=== PATIENT | male | born 1930 | race Caucasian/White ===

== ENCOUNTER 2018-01-09 16:07 | Inpatient (IN) | payer MEDICARE ==
[2018-01-09 16:18] VITALS: BMI 28.3
[2018-01-09] MEDS ORDERED: Vancomycin 1 GM 1 GM/250 ML BAG IV SCH (17:00)
--- NOTE | 2018-01-09 17:00 | C.PDOC ---
History Of Present Illness 87 year old male presents to the ED referred by PMD for evaluation of worsening swelling to the right elbow for the past 1-2 weeks. Notes purulent discharge and complains of associated subjective fever and chills. Denies history of diabetes or recent trauma. Reports he recently came back from [facility]. Also complains of left lower leg swelling for one week, onset after long flight. Reports history of kidney problems, but not dialysis treatment. Denies any chest pain, shortness of breath. MDM NO DOPPLER AVAIL @ THIS TIME. WILL DOSE LOVENOX FOR POSSIBLE DVT. <Yola Sevilla - Last Filed: 01/09/18 18:30> History Per: Patient History/Exam Limitations: no limitations Onset/Duration Of Symptoms: Days Current Symptoms Are (Timing): Still Present <Yola Sevilla - Last Filed: 01/09/18 18:30> <Samuel Grant - Last Filed: 01/09/18 20:33> Time Seen by Provider: 01/09/18 16:31 Chief Complaint (Nursing): Abnormal Skin Integrity Past Medical History Reviewed: Historical Data, Nursing Documentation, Vital Signs Vital Signs: Last Vital Signs Temp 97.7 F 01/09/18 16:18 Pulse 66 01/09/18 16:18 Resp 20 01/09/18 16:18 BP 130/75 01/09/18 16:18 Pulse Ox 100 01/09/18 16:18 - Medical History PMH: CAD, Diabetes, HTN Denies: Chronic Kidney Disease Surgical History: Pacemaker Family History: States: No Known Family Hx - Social History Hx Tobacco Use: No Hx Alcohol Use: No Hx Substance Use: No - Immunization History Hx Tetanus Toxoid Vaccination: Yes Hx Influenza Vaccination: Yes Hx Pneumococcal Vaccination: Yes <Yola Sevilla - Last Filed: 01/09/18 18:30> Vital Signs: Last Vital Signs Temp 97.7 F 01/09/18 16:18 Pulse 66 01/09/18 16:18 Resp 20 01/09/18 16:18 BP 130/75 01/09/18 16:18 Pulse Ox 100 01/09/18 18:31 <Samuel Grant - Last Filed: 01/09/18 20:33> Review Of Systems Except As Marked, All Systems Reviewed And Found Negative. Constitutional: Positive for: Fever, Chills Cardiovascular: Negative for: Chest Pain Respiratory: Negative for: Shortness of Breath Gastrointestinal: Negative for: Nausea, Vomiting Skin: Positive for: Other (right elbow swelling with purulent discharge and left lower leg swelling ) <Yola Sevilla Filed: 01/09/18 18:30> Physical Exam - Physical Exam Appears: Non-toxic, No Acute Distress Skin: Other (big swelling of the skin with purulent discharge to the olecranon region of right elbow ) Head: Atraumatic, Normacephalic Eye(s): bilateral: Normal Inspection Nose: Normal Oral Mucosa: Moist Neck: Supple Chest: Symmetrical Cardiovascular: Rhythm Regular Respiratory: No Rales, No Rhonchi, No Wheezing, Other (NARD) Extremity: Normal ROM (Right elbow and left leg ), No Deformity, Swelling (left lower swelling, nonpitting, no cellulitis, skin intact), Other ((+) minimal erythema to right elbow (-) lymphangitis) Pulses: Left Radial: Normal, Right Radial: Normal, Left Dorsalis Pedis: Normal, Right Dorsalis Pedis: Normal Neurological/Psych: Oriented x3, Normal Speech, Normal Motor, Normal Sensation, Normal Reflexes Gait: Steady <Yola Sevilla Filed: 01/09/18 18:30> ED Course And Treatment - Laboratory Results Result Diagrams: 01/09/18 17:28 01/09/18 17:28 O2 Sat by Pulse Oximetry: 100 (RA) Pulse Ox Interpretation: Normal - Radiology CXR: Interpreted by Me, Viewed By Me CXR Interpretation: Yes: No Acute Disease, Other (pacemaker) - Other Rad Right elbow X-Ray X-Ray: Interpreted by Me, Viewed By Me, Read By Radiologist Interpretation: Soft tissue mass, some questionable osteo in the olecranon. IMPRESSION: No large fracture or dislocation identified right elbow. However, a tiny bony fragment is seen posterior to the enthesiophyte related to the insertion of the triceps tendon at the olecranon process. Clinically correlate for potential partial tendon tear or simple chip fracture related to enthesophyte. Prominent overlying soft tissue edema with emphysema may indicate laceration or penetrating injury. Clinically correlate. <Yola Sevilla Filed: 01/09/18 18:30> - Laboratory Results Result Diagrams: 01/09/18 17:28 01/09/18 17:28 ECG Rhythm: V Paced ECG Interpretation: Normal Rate From EC <Samuel Grant E - Last Filed: 01/09/18 20:33> Progress - Re-Evaluation Re-evaluation Note: 01/09/18 17:02 D/W DR Izabella WHEELER WILL ADMIT. CONSULT DR BARROW - Data Reviewed Data Reviewed: Lab, Diagnostic imaging, EKG, Old records <Yola Sevilla - Last Filed: 01/09/18 18:30> Medical Decision Making Medical Decision Making: Plan - No Doppler available at this time. Will dose Lovenox for possible DVT - CT RUE - EKG - Bloodwork - Vancomycin IVPB - XR right elbow <Yola Sevilla - Last Filed: 01/09/18 18:30> Disposition Counseled Patient/Family Regarding: Studies Performed, Diagnosis - Disposition Disposition Time: 18:06 - POA Present On Arrival: Poor Glycemic Control <Yola Sevilla - Last Filed: 01/09/18 18:30> <Samuel Grant E - Last Filed: 01/09/18 20:33> - Disposition Disposition: HOSPITALIZED Condition: STABLE - Clinical Impression Clinical Impression: Leg swelling, Mass of elbow region - Scribe Statement The provider has reviewed the documentation as recorded by the Scribe Kalpana Duarte All medical record entries made by the Scribe were at my direction and personally dictated by me. I have reviewed the chart and agree that the record accurately reflects my personal performance of the history, physical exam, medical decision making, and the department course for this patient. I have also personally directed, reviewed, and agree with the discharge instructions and disposition. <Yola Sevilla - Last Filed: 01/09/18 18:30>
[2018-01-09 17:33] LABS: BASO % 0.7 % (0.0-2.0); EOS # 0.6 K/uL (0.0-0.7); EOS % 8.4 % (0.0-4.0); HEMOGLOBIN 9.2 g/dL (12.0-18.0); LYMPH # 1.5 K/uL (1.0-4.3); LYMPH % 22.7 % (20.0-40.0); MEAN CORPUSCULAR HEMOGLOBIN 28.6 pg (27.0-31.0); MEAN CORPUSCULAR HGB CONC 32.8 g/dL (33.0-37.0); MEAN PLATELET VOLUME 8.8 fL (7.2-11.7); MONO # 0.8 K/uL (0.0-0.8); NEUT # 3.7 K/uL (1.8-7.0); NEUT % 56.2 % (50.0-75.0); RBC 3.21 Mil/uL (4.40-5.90); RED CELL DISTRIBUTION WIDTH 14.9 % (11.5-14.5); WHITE BLOOD COUNT 6.6 K/uL (4.8-10.8)
[2018-01-09 17:34] LABS: MEAN CELL VOLUME 87.1 fL (80.0-94.0)
[2018-01-09] MEDS ORDERED: Enoxaparin 40 mg Syringe SC STA (17:37)
[2018-01-09] MEDS ORDERED: Enoxaparin 80 mg Syringe SC STA (17:45)
--- NOTE | 2018-01-09 17:46 | RAD ---
Date of service: 01/09/2018 HISTORY: MED CLEAR COMPARISON: Portable chest 04/19/2014. TECHNIQUE: Chest PA and lateral FINDINGS: LUNGS: No active pulmonary disease. PLEURA: No significant pleural effusion identified. No pneumothorax apparent. CARDIOVASCULAR: No aortic atherosclerotic calcification present. Cardiomegaly stable. Post CABG changes reiterated and bipolar permanent cardiac pacemaker again evident. No definite pulmonary vascular congestion. OSSEOUS STRUCTURES: No significant abnormalities. VISUALIZED UPPER ABDOMEN: Normal. OTHER FINDINGS: None. IMPRESSION: Stable cardiomegaly. No acute cardiovascular changes appreciable at this time. Pacemaker reiterated.
--- NOTE | 2018-01-09 17:47 | RAD ---
Date of service: 01/09/2018 PROCEDURE: Radiographs of the right elbow. HISTORY: SWELLING ABSCESS COMPARISON: No prior. FINDINGS: BONES: Tiny calcific fragment posterior to ossification of the insertion of the triceps tendon is identified which could reflect partial tendon tear or chip fracture off the enthesiophyte alone. Clinically correlate further. JOINTS: Limited degenerative cortical sclerosis appreciate throughout the joints of the right elbow. No subluxation or dislocation identified. SOFT TISSUES: Vascular calcifications are identified anteriorly. Prominent soft tissue edema overlies the olecranon process with gas within the soft tissue may reflect laceration or penetrating injury. Clinically correlate further. JOINT EFFUSION: None. OTHER FINDINGS: None. IMPRESSION: No large fracture or dislocation identified right elbow. However, a tiny bony fragment is seen posterior to the enthesiophyte related to the insertion of the triceps tendon at the olecranon process. Clinically correlate for potential partial tendon tear or simple chip fracture related to enthesophyte. Prominent overlying soft tissue edema with emphysema may indicate laceration or penetrating injury. Clinically correlate.
[2018-01-09 17:49] LABS: CALCIUM 9.2 mg/dl (8.6-10.4)
[2018-01-09] MEDS ORDERED: Sodium Chloride 0.9% 1,000 ML IV ONE (17:54)
[2018-01-09] MEDS ORDERED: Enoxaparin 80 mg Syringe ONE (18:27)
[2018-01-09] MEDS ORDERED: Sodium Chloride 0.9% 1,000 ML ONE (18:27)
[2018-01-09] MEDS ORDERED: Vancomycin 1 GM 1 GM/250 ML BAG IVPB ONE (18:27)
--- NOTE | 2018-01-09 19:05 | CP.PCM.HP ---
Past Patient History - Past Medical History & Family History Past Medical History?: Yes - Past Social History Smoking Status: Never Smoked - CARDIAC Hx Hypertension: Yes Hx Pacemaker: Yes - PULMONARY Hx Respiratory Disorders: No - NEUROLOGICAL Hx Neurological Disorder: No - HEENT Hx HEENT Problems: No - RENAL Hx Chronic Kidney Disease: No - ENDOCRINE/METABOLIC Hx Diabetes Mellitus Type 2: Yes - HEMATOLOGICAL/ONCOLOGICAL Hx Blood Disorders: No - INTEGUMENTARY Hx Dermatological Problems: No - MUSCULOSKELETAL/RHEUMATOLOGICAL Hx Musculoskeletal Disorders: No Hx Falls: No - GASTROINTESTINAL Hx Gastrointestinal Disorders: No - GENITOURINARY/GYNECOLOGICAL Hx Genitourinary Disorders: No - PSYCHIATRIC Hx Substance Use: No - SURGICAL HISTORY Hx Surgeries: Yes Other/Comment: pacemaker insertion - ANESTHESIA Hx Anesthesia: Yes Hx Anesthesia Reactions: No Hx Malignant Hyperthermia: No Meds Allergies/Adverse Reactions: Allergies Allergy/AdvReac Type Severity Reaction Status Date / Time No Known Allergies Allergy Verified 01/09/18 16:17 Physical Exam - Constitutional Appears: Well - Head Exam Head Exam: ATRAUMATIC, NORMAL INSPECTION, NORMOCEPHALIC - Eye Exam Eye Exam: EOMI, Normal appearance, PERRL Pupil Exam: NORMAL ACCOMODATION, PERRL - ENT Exam ENT Exam: Mucous Membranes Moist, Normal Exam - Neck Exam Neck exam: Positive for: Normal Inspection - Respiratory Exam Respiratory Exam: Decreased Breath Sounds - Cardiovascular Exam Cardiovascular Exam: REGULAR RHYTHM, +S1, +S2 - GI/Abdominal Exam GI & Abdominal Exam: Diminished Bowel Sounds, Soft - Rectal Exam Rectal Exam: Deferred Results - Vital Signs Recent Vital Signs: Last Vital Signs Temp 97.7 F 01/09/18 16:18 Pulse 66 01/09/18 16:18 Resp 20 01/09/18 16:18 BP 130/75 01/09/18 16:18 Pulse Ox 100 01/09/18 18:31 - Labs Result Diagrams: 01/09/18 17:28 01/09/18 17:28 Labs: Laboratory Results - last 24 hr 01/09/18 01/09/18 01/09/18 17:28 17:28 17:28 WBC 6.6 RBC 3.21 L Hgb 9.2 L Hct 27.9 L MCV 87.1 D MCH 28.6 MCHC 32.8 L RDW 14.9 H Plt Count 173 MPV 8.8 Neut % (Auto) 56.2 Lymph % (Auto) 22.7 [place] % (Auto) 12.0 H Eos % (Auto) 8.4 H Baso % (Auto) 0.7 Neut # (Auto) 3.7 Lymph # (Auto) 1.5 [place] # (Auto) 0.8 Eos # (Auto) 0.6 Baso # (Auto) 0.0 ESR 93 H Sodium 137 Potassium 4.1 Chloride 98 Carbon Dioxide 26 Anion Gap 17 BUN 57 H Creatinine 2.0 H Est GFR ( Amer) 39 Est GFR (Non-Af Amer) 32 Random Glucose 144 H Calcium 9.2 C-React Prot High Sens > 15.00 H
--- NOTE | 2018-01-09 19:22 | CT ---
Date of service: 01/09/2018 PROCEDURE: CT of the right upper extremity without contrast HISTORY: R ELBOW SOFT TISSUE MASS COMPARISON: No prior similar study available for comparison. TECHNIQUE: Axial and reformatted coronal and sagittal CT images of the right upper extremity including the right elbow were obtained without IV contrast administration. Reformatted 3D images were processed. Total exam DLP 156.91. FINDINGS: The evaluation for abscess formation or mass lesion is somewhat limited without IV contrast administration. There is heterogeneous mass like lesion posterior to the olecranon process. This lesion contains multiple foci of calcification and small foci of air measures 4 centimeter in the largest transverse diameter and 2 centimeter in the AP diameter. No definite evidence of drainable fluid collection in this lesion. There is adjacent subcutaneous edema. There is also heterogeneous tubular shaped calcification at the posterior aspect of distal right arm likely represent calcified tendinitis There is no evidence of acute fracture or dislocation. No evidence of significant joint effusion. No evidence of osteomyelitis or destructive bony lesion. IMPRESSION: Heterogeneous masslike lesion posterior to the olecranon process contains foci of calcification and foci of air. The evaluation for possible abscess is limited without IV contrast administration. No evidence of drainable fluid collection in this study. Suspicious for diffuse calcified tendinitis at the posterior aspect of the distal left arm
[2018-01-10] MEDS: Piperacillin/Tazobact 3.375 GM in Sodium Chloride 100 ML IVPB SCH ×3 (00:29→16:30)
[2018-01-10 01:05] VITALS: RESP 20
[2018-01-10] MEDS: Albuterol-Ipratrop 3 mg / 0.5 (3 ml) UD INH SCH ×4 (02:00→20:52)
[2018-01-10] MEDS: (Novolog) Insulin Aspart, Recombinant 100 u/ml 10 ml vial SC SCH ×4 (07:52→21:45)
[2018-01-10] MEDS: Pantoprazole 40 mg EC Tab PO SCH (09:09)
[2018-01-10] MEDS ORDERED: Albuterol-Ipratrop 20 mcg/actuation (4 g) IH SCH (10:00)
[2018-01-10] MEDS: metOLazone 5 MG TAB PO SCH (10:42)
--- NOTE | 2018-01-10 11:55 | CP.PCM.PN ---
Subjective - Date & Time of Evaluation Date of Evaluation: 01/10/18 Time of Evaluation: 08:45 - Subjective Subjective: clinically same Objective - Vital Signs/Intake and Output Vital Signs (last 24 hours): Temp Pulse Resp BP Pulse Ox 98.7 F 61 20 114/64 99 01/10/18 08:19 01/10/18 08:19 01/10/18 08:19 01/10/18 08:19 01/10/18 08:19 - Medications Medications: Current Medications Albuterol/Ipratropium (Combivent Respimat) 1 puff IH RQ12 [facility] Albuterol/Ipratropium (Duoneb 3 Mg/0.5 Mg (3 Ml) Ud) 3 ml INH RQ6 [facility] Last Admin: 01/10/18 07:40 Dose: 3 ml Celecoxib (Celebrex) 200 mg PO Q12 PRN PRN Reason: Pain, moderate (4-7) Ferrous Sulfate (Feosol) 325 mg PO BID [facility] Last Admin: 01/10/18 09:09 Dose: 325 mg Finasteride (Proscar) 5 mg PO DAILY [facility] Last Admin: 01/10/18 09:09 Dose: 5 mg Fluticasone/Vilanterol (Breo Ellipta 100-25 Mcg Inh) 1 puff INH RQ24 [facility] Folic Acid (Folic Acid) 1 mg PO DAILY [facility] Last Admin: 01/10/18 09:09 Dose: 1 mg Home Med (Eliquis) 1 tab PO BID [facility] Piperacillin Sod/Tazobactam (Sod 3.375 gm/ Sodium Chloride) 100 mls @ 200 mls/hr IVPB Q8H [facility]; Protocol Last Admin: 01/10/18 09:06 Dose: 200 mls/hr Insulin Aspart (Novolog) 0 unit SC ACHS [facility]; Protocol Last Admin: 01/10/18 07:52 Dose: Not Given Metolazone (Zaroxolyn) 5 mg PO DAILY [facility] Last Admin: 01/10/18 10:42 Dose: 5 mg Morphine Sulfate (Morphine) 2 mg IV Q6 PRN PRN Reason: Pain, moderate (4-7) Pantoprazole Sodium (Protonix Ec Tab) 40 mg PO DAILY [facility] Last Admin: 01/10/18 09:09 Dose: 40 mg Pioglitazone HCl (Actos) 30 mg PO DAILY [facility] Last Admin: 01/10/18 10:42 Dose: 30 mg Pneumococcal Polyvalent Vaccine (Pneumovax 23 Vaccine) 0.5 ml IM .ONCE ONE Stop: 01/11/18 10:01 Pregabalin (Lyrica) 75 mg PO Q12 PRN PRN Reason: Pain, moderate (4-7) Last Admin: 01/10/18 01:33 Dose: 75 mg Tamsulosin HCl (Flomax) 0.4 mg PO DAILY [facility] Last Admin: 01/10/18 09:09 Dose: 0.4 mg - Labs Labs: 01/09/18 17:28 01/09/18 17:28 - Constitutional Appears: Well - Head Exam Head Exam: ATRAUMATIC, NORMAL INSPECTION, NORMOCEPHALIC - Eye Exam Eye Exam: EOMI, Normal appearance, PERRL Pupil Exam: NORMAL ACCOMODATION, PERRL - ENT Exam ENT Exam: Mucous Membranes Moist, Normal Exam - Neck Exam Neck Exam: Full ROM, Normal Inspection. absent: Lymphadenopathy - Respiratory Exam Respiratory Exam: Decreased Breath Sounds - Cardiovascular Exam Cardiovascular Exam: REGULAR RHYTHM, +S1, +S2 - GI/Abdominal Exam GI & Abdominal Exam: Soft, Diminished Bowel Sounds - Rectal Exam Rectal Exam: Deferred
[2018-01-10] MEDS: Fluticasone-Vilanterol 100/25mcg Diskus INH SCH (13:13)
--- NOTE | 2018-01-10 13:18 | CP.PCM.CON ---
History of Present Illness - History of Present Illness History of Present Illness: 87 y/o presents with R. elbow abscess wit hc of pus/drainage and subjective fever and chills Returned from a 2 week vacation in [facility] after flight reports LLE edema At present mild SOB, no CP, no fever, no N/V, no calf tenderness PMHX: Chronic medical problems 1. 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 AFIB prior on eliquis 2.5 BID 2. CKD III 3. DM chronic fair control, 4. PPM L. chest Denies CVA Review of Systems - Review of Systems All systems: reviewed and no additional remarkable complaints except Past Patient History - Past Medical History & Family History Past Medical History?: Yes - Past Social History Smoking Status: Never Smoked - CARDIAC Hx Hypertension: Yes Hx Pacemaker: Yes - PULMONARY Hx Respiratory Disorders: No - NEUROLOGICAL Hx Neurological Disorder: No - HEENT Hx HEENT Problems: No - RENAL Hx Chronic Kidney Disease: No - ENDOCRINE/METABOLIC Hx Diabetes Mellitus Type 2: Yes - HEMATOLOGICAL/ONCOLOGICAL Hx Blood Disorders: No - INTEGUMENTARY Hx Dermatological Problems: No - MUSCULOSKELETAL/RHEUMATOLOGICAL Hx Musculoskeletal Disorders: No Hx Falls: No - GASTROINTESTINAL Hx Gastrointestinal Disorders: No - GENITOURINARY/GYNECOLOGICAL Hx Genitourinary Disorders: No - PSYCHIATRIC Hx Substance Use: No - SURGICAL HISTORY Hx Surgeries: Yes Other/Comment: pacemaker insertion - ANESTHESIA Hx Anesthesia: Yes Hx Anesthesia Reactions: No Hx Malignant Hyperthermia: No Meds Allergies/Adverse Reactions: Allergies Allergy/AdvReac Type Severity Reaction Status Date / Time No Known Allergies Allergy Verified 01/09/18 16:17 - Medications Medications: Current Medications Albuterol/Ipratropium (Combivent Respimat) 1 puff IH RQ12 [facility] Albuterol/Ipratropium (Duoneb 3 Mg/0.5 Mg (3 Ml) Ud) 3 ml INH RQ6 [facility] Last Admin: 01/10/18 13:11 Dose: 3 ml Celecoxib (Celebrex) 200 mg PO Q12 PRN PRN Reason: Pain, moderate (4-7) Ferrous Sulfate (Feosol) 325 mg PO BID [facility] Last Admin: 01/10/18 09:09 Dose: 325 mg Finasteride (Proscar) 5 mg PO DAILY [facility] Last Admin: 01/10/18 09:09 Dose: 5 mg Fluticasone/Vilanterol (Breo Ellipta 100-25 Mcg Inh) 1 puff INH RQ24 [facility] Last Admin: 01/10/18 13:13 Dose: Not Given Folic Acid (Folic Acid) 1 mg PO DAILY [facility] Last Admin: 01/10/18 09:09 Dose: 1 mg Home Med (Eliquis) 1 tab PO BID [facility] Piperacillin Sod/Tazobactam (Sod 3.375 gm/ Sodium Chloride) 100 mls @ 200 mls/hr IVPB Q8H [facility]; Protocol Last Admin: 01/10/18 09:06 Dose: 200 mls/hr Insulin Aspart (Novolog) 0 unit SC ACHS [facility]; Protocol Last Admin: 01/10/18 12:13 Dose: Not Given Metolazone (Zaroxolyn) 5 mg PO DAILY [facility] Last Admin: 01/10/18 10:42 Dose: 5 mg Morphine Sulfate (Morphine) 2 mg IV Q6 PRN PRN Reason: Pain, moderate (4-7) Pantoprazole Sodium (Protonix Ec Tab) 40 mg PO DAILY [facility] Last Admin: 01/10/18 09:09 Dose: 40 mg Pioglitazone HCl (Actos) 30 mg PO DAILY [facility] Last Admin: 01/10/18 10:42 Dose: 30 mg Pneumococcal Polyvalent Vaccine (Pneumovax 23 Vaccine) 0.5 ml IM .ONCE ONE Stop: 01/11/18 10:01 Pregabalin (Lyrica) 75 mg PO Q12 PRN PRN Reason: Pain, moderate (4-7) Last Admin: 01/10/18 13:08 Dose: 75 mg Tamsulosin HCl (Flomax) 0.4 mg PO DAILY [facility] Last Admin: 01/10/18 09:09 Dose: 0.4 mg Physical Exam - Constitutional Appears: No Acute Distress - Head Exam Head Exam: ATRAUMATIC, NORMAL INSPECTION, NORMOCEPHALIC - Eye Exam Eye Exam: EOMI, Normal appearance - ENT Exam ENT Exam: Mucous Membranes Moist, Normal Oropharynx - Neck Exam Neck exam: Positive for: Full Rom, Normal Inspection - Respiratory Exam Respiratory Exam: Clear to Auscultation Bilateral. absent: Rales, Rhonchi, W heezes - Cardiovascular Exam Cardiovascular Exam: REGULAR RHYTHM, +S1, +S2. absent: Systolic Murmur - GI/Abdominal Exam GI & Abdominal Exam: Normal Bowel Sounds, Soft. absent: Tenderness - Extremities Exam Extremities exam: Positive for: pedal edema, pedal pulses present. Negative for: calf tenderness Additional comments: RUE elbow abscess/mass - Neurological Exam Neurological exam: Alert, Oriented x3 - Psychiatric Exam Psychiatric exam: Normal Affect, Normal Mood - Skin Skin Exam: Normal Color, Warm Results - Vital Signs Recent Vital Signs: Last Vital Signs Temp 98.7 F 01/10/18 08:19 Pulse 61 01/10/18 08:19 Resp 20 01/10/18 08:19 BP 114/64 01/10/18 08:19 Pulse Ox 99 01/10/18 08:19 - Labs Result Diagrams: 01/09/18 17:28 01/09/18 17:28 Labs: Laboratory Results - last 24 hr 01/09/18 01/09/18 01/09/18 17:28 17:28 17:28 WBC 6.6 RBC 3.21 L Hgb 9.2 L Hct 27.9 L MCV 87.1 D MCH 28.6 MCHC 32.8 L RDW 14.9 H Plt Count 173 MPV 8.8 Neut % (Auto) 56.2 Lymph % (Auto) 22.7 [place] % (Auto) 12.0 H Eos % (Auto) 8.4 H Baso % (Auto) 0.7 Neut # (Auto) 3.7 Lymph # (Auto) 1.5 [place] # (Auto) 0.8 Eos # (Auto) 0.6 Baso # (Auto) 0.0 ESR 93 H Sodium 137 Potassium 4.1 Chloride 98 Carbon Dioxide 26 Anion Gap 17 BUN 57 H Creatinine 2.0 H Est GFR ( Amer) 39 Est GFR (Non-Af Amer) 32 POC Glucose (mg/dL) Random Glucose 144 H Calcium 9.2 C-React Prot High Sens > 15.00 H 01/10/18 01/10/18 07:05 11:15 WBC RBC Hgb Hct MCV MCH MCHC RDW Plt Count MPV Neut % (Auto) Lymph % (Auto) [place] % (Auto) Eos % (Auto) Baso % (Auto) Neut # (Auto) Lymph # (Auto) [place] # (Auto) Eos # (Auto) Baso # (Auto) ESR Sodium Potassium Chloride Carbon Dioxide Anion Gap BUN Creatinine Est GFR ( Amer) Est GFR (Non-Af Amer) POC Glucose (mg/dL) 108 152 H Random Glucose Calcium C-React Prot High Sens - EKG Data EKG Interpreted by: Myself - Imaging and Cardiology Chest x-ray Status: Image reviewed by me Assessment & Plan - Assessment and Plan (Free Text) Assessment: 87 y/o presetns with 1. LLE edema after a flight 2. Progression of R. Olecranon/elbow abscess ABX and consider I&D if appropriate F/U LE u/s to r/o DVT ASHD Known CABG 12 years ago EKG: v. paced with atrial tachycardia: rate controlled Ordered: 2D echo to eval LV function Patient should be optimized with Toprol or coreg; ASA 81 and statin therapy CKD III Monitor lytes BP control to SBP <130 Losartan 25 if ok with renal Anemia noted ? related to CKD/chronic disease hx of AFlutter/fib EKG is V. paced likely mode-swithed due to AFIB/flutter Resume eliquis 2.5 BID if no blood loss anemia - Date & Time Date: 01/10/18 Time: 13:34
--- NOTE | 2018-01-10 13:29 | CP.PCM.CON ---
History of Present Illness - History of Present Illness History of Present Illness: 87 year old male presents to the ED referred by PMD for evaluation of worsening swelling to the right elbow for the past 1-2 weeks. Notes purulent discharge and complains of associated subjective fever and chills. Denies history of diabetes or recent trauma. Reports he recently came back from [facility]. Also complains of left lower leg swelling for one week, onset after long flight. Reports history of kidney problems, but not dialysis treatment. Denies any chest pain, shortness of breath. recc imaging, cultures ortho eval IV antibiotics Past Patient History - Past Medical History & Family History Past Medical History?: Yes - Past Social History Smoking Status: Never Smoked - CARDIAC Hx Hypertension: Yes Hx Pacemaker: Yes - PULMONARY Hx Respiratory Disorders: No - NEUROLOGICAL Hx Neurological Disorder: No - HEENT Hx HEENT Problems: No - RENAL Hx Chronic Kidney Disease: No - ENDOCRINE/METABOLIC Hx Diabetes Mellitus Type 2: Yes - HEMATOLOGICAL/ONCOLOGICAL Hx Blood Disorders: No - INTEGUMENTARY Hx Dermatological Problems: No - MUSCULOSKELETAL/RHEUMATOLOGICAL Hx Musculoskeletal Disorders: No Hx Falls: No - GASTROINTESTINAL Hx Gastrointestinal Disorders: No - GENITOURINARY/GYNECOLOGICAL Hx Genitourinary Disorders: No - PSYCHIATRIC Hx Substance Use: No - SURGICAL HISTORY Hx Surgeries: Yes Other/Comment: pacemaker insertion - ANESTHESIA Hx Anesthesia: Yes Hx Anesthesia Reactions: No Hx Malignant Hyperthermia: No Meds Allergies/Adverse Reactions: Allergies Allergy/AdvReac Type Severity Reaction Status Date / Time No Known Allergies Allergy Verified 01/09/18 16:17 - Medications Medications: Current Medications Albuterol/Ipratropium (Combivent Respimat) 1 puff IH RQ12 [facility] Albuterol/Ipratropium (Duoneb 3 Mg/0.5 Mg (3 Ml) Ud) 3 ml INH RQ6 [facility] Last Admin: 01/10/18 13:11 Dose: 3 ml Celecoxib (Celebrex) 200 mg PO Q12 PRN PRN Reason: Pain, moderate (4-7) Ferrous Sulfate (Feosol) 325 mg PO BID [facility] Last Admin: 01/10/18 09:09 Dose: 325 mg Finasteride (Proscar) 5 mg PO DAILY [facility] Last Admin: 01/10/18 09:09 Dose: 5 mg Fluticasone/Vilanterol (Breo Ellipta 100-25 Mcg Inh) 1 puff INH RQ24 [facility] Last Admin: 01/10/18 13:13 Dose: Not Given Folic Acid (Folic Acid) 1 mg PO DAILY [facility] Last Admin: 01/10/18 09:09 Dose: 1 mg Home Med (Eliquis) 1 tab PO BID [facility] Piperacillin Sod/Tazobactam (Sod 3.375 gm/ Sodium Chloride) 100 mls @ 200 mls /hr IVPB Q8H [facility]; Protocol Last Admin: 01/10/18 09:06 Dose: 200 mls/hr Insulin Aspart (Novolog) 0 unit SC ACHS [facility]; Protocol Last Admin: 01/10/18 12:13 Dose: Not Given Metolazone (Zaroxolyn) 5 mg PO DAILY [facility] Last Admin: 01/10/18 10:42 Dose: 5 mg Morphine Sulfate (Morphine) 2 mg IV Q6 PRN PRN Reason: Pain, moderate (4-7) Pantoprazole Sodium (Protonix Ec Tab) 40 mg PO DAILY [facility] Last Admin: 01/10/18 09:09 Dose: 40 mg Pioglitazone HCl (Actos) 30 mg PO DAILY [facility] Last Admin: 01/10/18 10:42 Dose: 30 mg Pneumococcal Polyvalent Vaccine (Pneumovax 23 Vaccine) 0.5 ml IM .ONCE ONE Stop: 01/11/18 10:01 Pregabalin (Lyrica) 75 mg PO Q12 PRN PRN Reason: Pain, moderate (4-7) Last Admin: 01/10/18 13:08 Dose: 75 mg Tamsulosin HCl (Flomax) 0.4 mg PO DAILY [facility] Last Admin: 01/10/18 09:09 Dose: 0.4 mg Results - Vital Signs Recent Vital Signs: Last Vital Signs Temp 98.7 F 01/10/18 08:19 Pulse 61 01/10/18 08:19 Resp 20 01/10/18 08:19 BP 114/64 01/10/18 08:19 Pulse Ox 99 01/10/18 08:19 - Labs Result Diagrams: 01/09/18 17:28 01/09/18 17:28 Labs: Laboratory Results - last 24 hr 01/09/18 01/09/18 01/09/18 17:28 17:28 17:28 WBC 6.6 RBC 3.21 L Hgb 9.2 L Hct 27.9 L MCV 87.1 D MCH 28.6 MCHC 32.8 L RDW 14.9 H Plt Count 173 MPV 8.8 Neut % (Auto) 56.2 Lymph % (Auto) 22.7 [place] % (Auto) 12.0 H Eos % (Auto) 8.4 H Baso % (Auto) 0.7 Neut # (Auto) 3.7 Lymph # (Auto) 1.5 [place] # (Auto) 0.8 Eos # (Auto) 0.6 Baso # (Auto) 0.0 ESR 93 H Sodium 137 Potassium 4.1 Chloride 98 Carbon Dioxide 26 Anion Gap 17 BUN 57 H Creatinine 2.0 H Est GFR ( Amer) 39 Est GFR (Non-Af Amer) 32 POC Glucose (mg/dL) Random Glucose 144 H Calcium 9.2 C-React Prot High Sens > 15.00 H 01/10/18 01/10/18 07:05 11:15 WBC RBC Hgb Hct MCV MCH MCHC RDW Plt Count MPV Neut % (Auto) Lymph % (Auto) [place] % (Auto) Eos % (Auto) Baso % (Auto) Neut # (Auto) Lymph # (Auto) [place] # (Auto) Eos # (Auto) Baso # (Auto) ESR Sodium Potassium Chloride Carbon Dioxide Anion Gap BUN Creatinine Est GFR ( Amer) Est GFR (Non-Af Amer) POC Glucose (mg/dL) 108 152 H Random Glucose Calcium C-React Prot High Sens
[2018-01-11] MEDS: Piperacillin/Tazobact 3.375 GM in Sodium Chloride 100 ML IVPB SCH ×3 (00:15→17:00)
[2018-01-11] MEDS: Albuterol-Ipratrop 3 mg / 0.5 (3 ml) UD INH SCH ×4 (01:20→20:27)
[2018-01-11] MEDS: (Novolog) Insulin Aspart, Recombinant 100 u/ml 10 ml vial SC SCH ×4 (07:57→21:58)
[2018-01-11] MEDS: Pantoprazole 40 mg EC Tab PO SCH (09:11)
[2018-01-11] MEDS: metOLazone 5 MG TAB PO SCH (09:11)
[2018-01-11] MEDS: Fluticasone-Vilanterol 100/25mcg Diskus INH SCH (09:32)
[2018-01-11] MEDS ORDERED: Pneumococcal 23-Valent Vaccine IM ONE (10:00)
[2018-01-11] MEDS: Morphine 4 MG/ML VIAL IVP PRN (14:18)
--- NOTE | 2018-01-11 16:20 | CP.PCM.CON ---
History of Present Illness - History of Present Illness History of Present Illness: 87 year old male presents to the ED referred by PMD for evaluation of worsening swelling to the right elbow for the past 1-2 weeks. Notes purulent discharge and complains of associated subjective fever and chills. Denies history of diabetes or recent trauma. Reports he recently came back from [facility]. Also complains of left lower leg swelling for one week, onset after long flight. Reports history of kidney problems, but not dialysis treatment. Denies any chest pain, shortness of breath. recc imaging, cultures ortho eval IV antibiotics Review of Systems - Review of Systems All systems: reviewed and no additional remarkable complaints except - Constitutional Constitutional: As Per HPI - EENT Eyes: absent: As Per HPI, Blind Spots, Blurred Vision, Change in Vision, Decreased Night Vision, Diplopia, Discharge, Dry Eye, Exophthalmos, Floaters, Irritation, Itchy Eyes, Loss of Peripheral Vision, Pain, Photophobia, Requires Corrective Lenses, Sees Flashes, Spots in Vision, Tunnel Vision, Other Visual Disturbances, Loss of Vision, Other Ears: absent: As Per HPI, Decreased Hearing, Ear Discharge, Ear Pain, Tinnitus, Abnormal Hearing, Disequilibrium, Dizziness, Other Nose/Mouth/Throat: absent: As Per HPI, Epistaxis, Nasal Congestion, Nasal Discharge, Nasal Obstruction, Nasal Trauma, Nose Pain, Post Nasal Drip, Sinus Pain, Sinus Pressure, Bleeding Gums, Change in Voice, Dental Pain, Dry Mouth, Dysphagia, Halitosis, Hoarsness, Lip Swelling, Mouth Lesions, Mouth Pain, Odynophagia, Sore Throat, Throat Swelling, Tongue Swelling, Facial Pain, Neck Pain, Neck Mass, Other - Cardiovascular Cardiovascular: As Per HPI - Gastrointestinal Gastrointestinal: absent: As Per HPI, Abdominal Pain, Belching, Bloating, Change in Bowel Habits, Change in Stool Character, Coffee Ground Emesis, Constipation, Cramping, Diarrhea, Dyspepsia, Dysphagia, Early Satiety, Excessive Flatus, Fecal Incontinence, Heartburn, Hematemesis, Hematochezia, Loose Stools, Melena, Nausea, Odynophagia, Temesmus, Vomiting, Other - Genitourinary Genitourinary: absent: As Per HPI, Change in Urinary Stream, Difficulty Urinating, Dysuria, Flank Pain, Hematuria, Pyuria, Nocturia, Urinary Incontinence, Urinary Frequency, Urinary Hesitance, Urinary Urgency, Voiding Freq/Small Amts, Freq UTI, Hx Renal/Bladder Calculi, Hx /Renal Surgery, Marty dder Distension, Other - Musculoskeletal Musculoskeletal: As Per HPI - Integumentary Integumentary: As Per HPI - Neurological Neurological: absent: As Per HPI, Abnormal Gait, Abnormal Hearing, Abnormal Movements, Abnormal Speech, Behavioral Changes, Burning Sensations, Confusion, Convulsions, Disequilibrium, Dizziness, Numbness, Focal Weakness, Frequent Falls, Headaches, Lack of Coordination, Loss of Vision, Memory Loss, Paresthesias, Radicular Pain, Restless Legs, Sensory Deficit, Syncope, Tingling, Tremor, Vertigo, Weakness, Other Visual Disturbances, Other Past Patient History - Past Medical History & Family History Past Medical History?: Yes - Past Social History Smoking Status: Never Smoked - CARDIAC Hx Hypertension: Yes - PULMONARY Hx Respiratory Disorders: No - NEUROLOGICAL Hx Neurological Disorder: No - HEENT Hx HEENT Problems: No - RENAL Hx Chronic Kidney Disease: No - ENDOCRINE/METABOLIC Hx Diabetes Mellitus Type 2: Yes - HEMATOLOGICAL/ONCOLOGICAL Hx Blood Disorders: No - INTEGUMENTARY Hx Dermatological Problems: No - MUSCULOSKELETAL/RHEUMATOLOGICAL Hx Musculoskeletal Disorders: No Hx Falls: No - GASTROINTESTINAL Hx Gastrointestinal Disorders: No - GENITOURINARY/GYNECOLOGICAL Hx Genitourinary Disorders: No - PSYCHIATRIC Hx Substance Use: No - SURGICAL HISTORY Hx Surgeries: Yes Other/Comment: pacemaker insertion - ANESTHESIA Hx Anesthesia: Yes Hx Anesthesia Reactions: No Hx Malignant Hyperthermia: No Meds Allergies/Adverse Reactions: Allergies Allergy/AdvReac Type Severity Reaction Status Date / Time No Known Allergies Allergy Verified 01/09/18 16:17 - Medications Medications: Current Medications Albuterol/Ipratropium (Combivent Respimat) 1 puff IH RQ12 [facility] Albuterol/Ipratropium (Duoneb 3 Mg/0.5 Mg (3 Ml) Ud) 3 ml INH RQ6 [facility] Last Admin: 01/11/18 15:22 Dose: Not Given Apixaban (Eliquis) 2.5 mg PO BID [facility] Last Admin: 01/11/18 09:10 Dose: 2.5 mg Celecoxib (Celebrex) 200 mg PO Q12 PRN PRN Reason: Pain, moderate (4-7) Ferrous Sulfate (Feosol) 325 mg PO BID [facility] Last Admin: 01/11/18 09:10 Dose: 325 mg Finasteride (Proscar) 5 mg PO DAILY [facility] Last Admin: 01/11/18 09:10 Dose: 5 mg Fluticasone/Vilanterol (Breo Ellipta 100-25 Mcg Inh) 1 puff INH RQ24 [facility] Last Admin: 01/11/18 09:32 Dose: Not Given Folic Acid (Folic Acid) 1 mg PO DAILY [facility] Last Admin: 01/11/18 09:10 Dose: 1 mg Piperacillin Sod/Tazobactam (Sod 3.375 gm/ Sodium Chloride) 100 mls @ 200 mls/hr IVPB Q8H [facility]; Protocol Last Admin: 01/11/18 08:35 Dose: 200 mls/hr Insulin Aspart (Novolog) 0 unit SC ACHS [facility]; Protocol Last Admin: 01/11/18 12:43 Dose: 1 u Metolazone (Zaroxolyn) 5 mg PO DAILY [facility] Last Admin: 01/11/18 09:11 Dose: 5 mg Morphine Sulfate (Morphine) 4 mg IVP Q6 PRN PRN Reason: Pain, severe (8-10) Last Admin: 01/11/18 14:18 Dose: 4 mg Pantoprazole Sodium (Protonix Ec Tab) 40 mg PO DAILY [facility] Last Admin: 01/11/18 09:11 Dose: 40 mg Pioglitazone HCl (Actos) 30 mg PO DAILY [facility] Last Admin: 01/11/18 09:10 Dose: 30 mg Pregabalin (Lyrica) 75 mg PO Q12 PRN PRN Reason: Pain, moderate (4-7) Last Admin: 01/11/18 00:35 Dose: 75 mg Tamsulosin HCl (Flomax) 0.4 mg PO DAILY [facility] Last Admin: 01/11/18 09:10 Dose: 0.4 mg Physical Exam - Constitutional Appears: Non-toxic, Chronically Ill - Head Exam Head Exam: NORMOCEPHALIC - Eye Exam Eye Exam: absent: Scleral icterus - ENT Exam ENT Exam: Mucous Membranes Dry - Neck Exam Neck exam: Negative for: Lymphadenopathy - Respiratory Exam Respiratory Exam: Decreased Breath Sounds - Cardiovascular Exam Cardiovascular Exam: REGULAR RHYTHM - GI/Abdominal Exam GI & Abdominal Exam: Diminished Bowel Sounds, Soft. absent: Tenderness - Rectal Exam Rectal Exam: Deferred - Exam Exam: NORMAL INSPECTION - Extremities Exam Extremities exam: Positive for: tenderness, pedal pulses present. Negative for: calf tenderness - Back Exam Back exam: absent: CVA tenderness (L), CVA tenderness (R) - Neurological Exam Neurological exam: Alert, CN II-XII Intact, Oriented x3, Reflexes Normal - Psychiatric Exam Psychiatric exam: Depressed - Skin Skin Exam: Dry Results - Vital Signs Recent Vital Signs: Last Vital Signs Temp 97.7 F 01/11/18 08:12 Pulse 71 01/11/18 12:02 Resp 20 01/11/18 08:12 BP 130/72 01/11/18 08:12 Pulse Ox 97 01/11/18 12:02 - Labs Result Diagrams: 01/09/18 17:28 01/09/18 17:28 Labs: Laboratory Results - last 24 hr 01/10/18 01/11/18 21:14 02:20 POC Glucose (mg/dL) 137 H 110 Assessment & Plan (1) Leg swelling Status: Acute (2) Mass of elbow region Status: Acute (3) 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
--- NOTE | 2018-01-11 17:25 | CP.PCM.PN ---
Subjective - Date & Time of Evaluation Date of Evaluation: 01/11/18 Time of Evaluation: 08:30 - Subjective Subjective: clinically same Objective - Vital Signs/Intake and Output Vital Signs (last 24 hours): Temp Pulse Resp BP Pulse Ox 97.5 F L 81 20 111/58 L 99 01/11/18 15:00 01/11/18 15:00 01/11/18 15:00 01/11/18 15:00 01/11/18 15:00 Intake and Output: 01/11/18 01/11/18 06:59 18:59 Intake Total 400 600 Balance 400 600 - Medications Medications: Current Medications Albuterol/Ipratropium (Combivent Respimat) 1 puff IH RQ12 [facility] Albuterol/Ipratropium (Duoneb 3 Mg/0.5 Mg (3 Ml) Ud) 3 ml INH RQ6 [facility] Last Admin: 01/11/18 15:22 Dose: Not Given Apixaban (Eliquis) 2.5 mg PO BID [facility] Last Admin: 01/11/18 09:10 Dose: 2.5 mg Celecoxib (Celebrex) 200 mg PO Q12 PRN PRN Reason: Pain, moderate (4-7) Ferrous Sulfate (Feosol) 325 mg PO BID [facility] Last Admin: 01/11/18 09:10 Dose: 325 mg Finasteride (Proscar) 5 mg PO DAILY [facility] Last Admin: 01/11/18 09:10 Dose: 5 mg Fluticasone/Vilanterol (Breo Ellipta 100-25 Mcg Inh) 1 puff INH RQ24 [facility] Last Admin: 01/11/18 09:32 Dose: Not Given Folic Acid (Folic Acid) 1 mg PO DAILY [facility] Last Admin: 01/11/18 09:10 Dose: 1 mg Piperacillin Sod/Tazobactam (Sod 3.375 gm/ Sodium Chloride) 100 mls @ 200 mls/hr IVPB Q8H [facility]; Protocol Last Admin: 01/11/18 08:35 Dose: 200 mls/hr Insulin Aspart (Novolog) 0 unit SC ACHS [facility]; Protocol Last Admin: 01/11/18 12:43 Dose: 1 u Metolazone (Zaroxolyn) 5 mg PO DAILY [facility] Last Admin: 01/11/18 09:11 Dose: 5 mg Morphine Sulfate (Morphine) 4 mg IVP Q6 PRN PRN Reason: Pain, severe (8-10) Last Admin: 01/11/18 14:18 Dose: 4 mg Pantoprazole Sodium (Protonix Ec Tab) 40 mg PO DAILY [facility] Last Admin: 01/11/18 09:11 Dose: 40 mg Pioglitazone HCl (Actos) 30 mg PO DAILY [facility] Last Admin: 01/11/18 09:10 Dose: 30 mg Pregabalin (Lyrica) 75 mg PO Q12 PRN PRN Reason: Pain, moderate (4-7) Last Admin: 01/11/18 00:35 Dose: 75 mg Tamsulosin HCl (Flomax) 0.4 mg PO DAILY [facility] Last Admin: 01/11/18 09:10 Dose: 0.4 mg Temazepam (Restoril) 15 mg PO HS PRN PRN Reason: Sleep - Labs Labs: 01/09/18 17:28 01/09/18 17:28 - Constitutional Appears: Well - Head Exam Head Exam: ATRAUMATIC, NORMAL INSPECTION, NORMOCEPHALIC - Eye Exam Eye Exam: EOMI, Normal appearance, PERRL Pupil Exam: NORMAL ACCOMODATION, PERRL - ENT Exam ENT Exam: Mucous Membranes Moist, Normal Exam - Neck Exam Neck Exam: Full ROM, Normal Inspection. absent: Lymphadenopathy - Respiratory Exam Respiratory Exam: Decreased Breath Sounds - Cardiovascular Exam Cardiovascular Exam: REGULAR RHYTHM, +S1, +S2 - GI/Abdominal Exam GI & Abdominal Exam: Soft, Diminished Bowel Sounds - Rectal Exam Rectal Exam: Deferred
[2018-01-12] MEDS: Albuterol-Ipratrop 3 mg / 0.5 (3 ml) UD INH SCH ×4 (01:35→19:47)
[2018-01-12] MEDS: (Novolog) Insulin Aspart, Recombinant 100 u/ml 10 ml vial SC SCH ×4 (08:25→22:51)
[2018-01-12] MEDS: Fluticasone-Vilanterol 100/25mcg Diskus INH SCH (08:35)
[2018-01-12] MEDS: Piperacillin/Tazobact 3.375 GM in Sodium Chloride 100 ML IVPB SCH ×3 (08:51→17:00)
[2018-01-12] MEDS: Pantoprazole 40 mg EC Tab PO SCH (11:00)
[2018-01-12] MEDS: metOLazone 5 MG TAB PO SCH (11:01)
--- NOTE | 2018-01-12 12:26 | CP.PCM.PN ---
Subjective - Date & Time of Evaluation Date of Evaluation: 01/12/18 Time of Evaluation: 09:00 - Subjective Subjective: still c/o pain CT noted- no definiyte abscess or bony destruction wound + MSSA no Vanco needed may need debridement Objective - Vital Signs/Intake and Output Vital Signs (last 24 hours): Temp Pulse Resp BP Pulse Ox 97.9 F 88 20 135/70 97 01/12/18 07:24 01/12/18 07:24 01/12/18 07:24 01/12/18 07:24 01/12/18 07:24 Intake and Output: 01/12/18 01/12/18 06:59 18:59 Intake Total 400 Balance 400 - Medications Medications: Current Medications Albuterol/Ipratropium (Combivent Respimat) 1 puff IH RQ12 [facility] Albuterol/Ipratropium (Duoneb 3 Mg/0.5 Mg (3 Ml) Ud) 3 ml INH RQ6 [facility] Last Admin: 01/12/18 08:34 Dose: Not Given Apixaban (Eliquis) 2.5 mg PO BID [facility] Last Admin: 01/12/18 11:00 Dose: 2.5 mg Celecoxib (Celebrex) 200 mg PO Q12 PRN PRN Reason: Pain, moderate (4-7) Ferrous Sulfate (Feosol) 325 mg PO BID [facility] Last Admin: 01/12/18 11:00 Dose: 325 mg Finasteride (Proscar) 5 mg PO DAILY [facility] Last Admin: 01/12/18 11:00 Dose: 5 mg Fluticasone/Vilanterol (Breo Ellipta 100-25 Mcg Inh) 1 puff INH RQ24 [facility] Last Admin: 01/12/18 08:35 Dose: Not Given Folic Acid (Folic Acid) 1 mg PO DAILY [facility] Last Admin: 01/12/18 11:00 Dose: 1 mg Piperacillin Sod/Tazobactam (Sod 3.375 gm/ Sodium Chloride) 100 mls @ 200 mls/hr IVPB Q8H [facility]; Protocol Last Admin: 01/12/18 08:51 Dose: 200 mls/hr Insulin Aspart (Novolog) 0 unit SC ACHS [facility]; Protocol Last Admin: 01/12/18 12:14 Dose: Not Given Metolazone (Zaroxolyn) 5 mg PO DAILY [facility] Last Admin: 01/12/18 11:01 Dose: 5 mg Morphine Sulfate (Morphine) 4 mg IVP Q6 PRN PRN Reason: Pain, severe (8-10) Last Admin: 01/11/18 14:18 Dose: 4 mg Pantoprazole Sodium (Protonix Ec Tab) 40 mg PO DAILY [facility] Last Admin: 01/12/18 11:00 Dose: 40 mg Pioglitazone HCl (Actos) 30 mg PO DAILY [facility] Last Admin: 01/12/18 11:01 Dose: 30 mg Pregabalin (Lyrica) 75 mg PO Q12 PRN PRN Reason: Pain, moderate (4-7) Last Admin: 01/11/18 17:32 Dose: 75 mg Tamsulosin HCl (Flomax) 0.4 mg PO DAILY [facility] Last Admin: 01/12/18 11:00 Dose: 0.4 mg Temazepam (Restoril) 15 mg PO HS PRN PRN Reason: Sleep - Labs Labs: 01/09/18 17:28 01/09/18 17:28 Assessment and Plan (1) Leg swelling Status: Acute (2) Mass of elbow region Status: Acute (3) 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
--- NOTE | 2018-01-12 12:41 | CP.PCM.CON ---
History of Present Illness - History of Present Illness History of Present Illness: Orthopedic consultation Dr. Walden 87M complains of right elbow pain, swelling, and drainage x 2 weeks. He says that it started as a little bump on his elbow. He says there has been a lot of white stuff coming out of his elbow for two weeks, and that he had to come back from [facility] as an emergency. He denies any history of fall/trauma/bite/prior elbow injury. No history of gout. Denies numbness/tingling PMH: kidney disease, no dialysis, DM, HTN, PPM Review of Systems - Review of Systems All systems: reviewed and no additional remarkable complaints except - Constitutional Constitutional: Fever - Cardiovascular Additional comments: denies cp - Respiratory Additional comments: denies sob - Gastrointestinal Additional comments: no n/v - Hematologic/Lymphatic Hematologic: absent: As Per HPI, Easy Bleeding, Easy Bruising, Lymphadenopathy, Other Past Patient History - Past Medical History & Family History Past Medical History?: Yes Past Family History: Reviewed and not pertinent - Past Social History Smoking Status: Never Smoked - CARDIAC Hx Hypertension: Yes - PULMONARY Hx Respiratory Disorders: No - NEUROLOGICAL Hx Neurological Disorder: No - HEENT Hx HEENT Problems: No - RENAL Hx Chronic Kidney Disease: No - ENDOCRINE/METABOLIC Hx Diabetes Mellitus Type 2: Yes - HEMATOLOGICAL/ONCOLOGICAL Hx Blood Disorders: No - INTEGUMENTARY Hx Dermatological Problems: No - MUSCULOSKELETAL/RHEUMATOLOGICAL Hx Musculoskeletal Disorders: No Hx Falls: No - GASTROINTESTINAL Hx Gastrointestinal Disorders: No - GENITOURINARY/GYNECOLOGICAL Hx Genitourinary Disorders: No - PSYCHIATRIC Hx Substance Use: No - SURGICAL HISTORY Hx Surgeries: Yes Other/Comment: pacemaker insertion - ANESTHESIA Hx Anesthesia: Yes Hx Anesthesia Reactions: No Hx Malignant Hyperthermia: No Meds Allergies/Adverse Reactions: Allergies Allergy/AdvReac Type Severity Reaction Status Date / Time No Known Allergies Allergy Verified 01/09/18 16:17 - Medications Medications: Current Medications Albuterol/Ipratropium (Combivent Respimat) 1 puff IH RQ12 [facility] Albuterol/Ipratropium (Duoneb 3 Mg/0.5 Mg (3 Ml) Ud) 3 ml INH RQ6 [facility] Last Admin: 01/12/18 08:34 Dose: Not Given Apixaban (Eliquis) 2.5 mg PO BID [facility] Last Admin: 01/12/18 11:00 Dose: 2.5 mg Celecoxib (Celebrex) 200 mg PO Q12 PRN PRN Reason: Pain, moderate (4-7) Ferrous Sulfate (Feosol) 325 mg PO BID [facility] Last Admin: 01/12/18 11:00 Dose: 325 mg Finasteride (Proscar) 5 mg PO DAILY [facility] Last Admin: 01/12/18 11:00 Dose: 5 mg Fluticasone/Vilanterol (Breo Ellipta 100-25 Mcg Inh) 1 puff INH RQ24 [facility] Last Admin: 01/12/18 08:35 Dose: Not Given Folic Acid (Folic Acid) 1 mg PO DAILY [facility] Last Admin: 01/12/18 11:00 Dose: 1 mg Piperacillin Sod/Tazobactam (Sod 3.375 gm/ Sodium Chloride) 100 mls @ 200 mls/hr IVPB Q8H [facility]; Protocol Last Admin: 01/12/18 08:51 Dose: 200 mls/hr Insulin Aspart (Novolog) 0 unit SC ACHS [facility]; Protocol Last Admin: 01/12/18 12:14 Dose: Not Given Metolazone (Zaroxolyn) 5 mg PO DAILY [facility] Last Admin: 01/12/18 11:01 Dose: 5 mg Morphine Sulfate (Morphine) 4 mg IVP Q6 PRN PRN Reason: Pain, severe (8-10) Last Admin: 01/11/18 14:18 Dose: 4 mg Pantoprazole Sodium (Protonix Ec Tab) 40 mg PO DAILY [facility] Last Admin: 01/12/18 11:00 Dose: 40 mg Pioglitazone HCl (Actos) 30 mg PO DAILY [facility] Last Admin: 01/12/18 11:01 Dose: 30 mg Pregabalin (Lyrica) 75 mg PO Q12 PRN PRN Reason: Pain, moderate (4-7) Last Admin: 01/11/18 17:32 Dose: 75 mg Tamsulosin HCl (Flomax) 0.4 mg PO DAILY [facility] Last Admin: 01/12/18 11:00 Dose: 0.4 mg Temazepam (Restoril) 15 mg PO HS PRN PRN Reason: Sleep Physical Exam - Constitutional Appears: Well, No Acute Distress - Head Exam Head Exam: ATRAUMATIC - Neck Exam Neck exam: Positive for: Full Rom, Normal Inspection - Respiratory Exam Respiratory Exam: NORMAL BREATHING PATTERN - Cardiovascular Exam Additional comments: +radial pulse - Extremities Exam Additional comments: [id number] boggy abscess over olecranon, draining - Expanded Upper Extremities Exam Right Elbow exam: full ROM, swelling, tenderness Neuro motor exam: finger 2-5 abduction intact, thumb abduction, thumb IP flexion intact, thumb opposition intact, wrist extension intact Neurosensory exam: median nerve intact, radial nerve intact, ulnar nerve intact Vascular exam: radial pulse - Neurological Exam Neurological exam: Alert, Oriented x3 - Psychiatric Exam Psychiatric exam: Normal Affect, Normal Mood - Skin Skin Exam: Warm Additional comments: minimal erythema localized to over olecranon, two wounds noted, able to express serous fluid and thick white solid discharge Results - Vital Signs Recent Vital Signs: Last Vital Signs Temp 97.9 F 01/12/18 07:24 Pulse 88 01/12/18 07:24 Resp 20 01/12/18 07:24 BP 135/70 01/12/18 07:24 Pulse Ox 97 01/12/18 07:24 - Labs Result Diagrams: 01/09/18 17:28 01/09/18 17:28 Labs: Laboratory Results - last 24 hr 01/11/18 01/11/18 01/11/18 07:02 11:27 16:09 POC Glucose (mg/dL) 141 H 184 H 156 H 01/11/18 01/12/18 01/12/18 21:12 02:23 07:13 POC Glucose (mg/dL) 152 H 144 H 130 H - Impressions Impression: atient Name / ID : PANCHO SINGH / [id number] Exam Date : 01/09/2018 18:10:56 ( Approved ) Study Comment : Sex / Age : M / 87Y Creator : Phuong Xie MD Dictator : Phuong Xie MD Cv/Cvn Cv Tsc System Operator : [employer] Position Clerk : Phuong Xie MD Approver2 : Report Date : 01/09/2018 19:18:26 My Comment : Date of service: 01/09/2018 PROCEDURE: CT of the right upper extremity without contrast HISTORY: R ELBOW SOFT TISSUE MASS COMPARISON: No prior similar study available for comparison. TECHNIQUE: Axial and reformatted coronal and sagittal CT images of the right upper extremity including the right elbow were obtained without IV contrast administration. Reformatted 3D images were processed. Total exam DLP 156.91. FINDINGS: The evaluation for abscess formation or mass lesion is somewhat limited without IV contrast administration. There is heterogeneous mass like lesion posterior to the olecranon process. This lesion contains multiple foci of calcification and small foci of air measures 4 centimeter in the largest transverse diameter and 2 centimeter in the AP diameter. No definite evidence of drainable fluid collection in this lesion. There is adjacent subcutaneous edema. There is also heterogeneous tubular shaped calcification at the posterior aspect of distal right arm likely represent calcified tendinitis There is no evidence of acute fracture or dislocation. No evidence of significant joint effusion. No evidence of osteomyelitis or destructive bony lesion. IMPRESSION: Heterogeneous masslike lesion posterior to the olecranon process contains foci of calcification and foci of air. The evaluation for possible abscess is limited without IV contrast administration. No evidence of drainable fluid collection in this study. Suspicious for diffuse calcified tendinitis at the posterior aspect of the distal left arm atient Name / ID : PANCHO SINGH / [id number] Exam Date : 01/09/2018 17:04:07 ( Approved ) Study Comment : Sex / Age : M / 87Y Creator : Liz Douglas Dictator : Karlos Huynh MD Cv/Cvn Cv Tsc System Operator : [employer] Position Clerk : Karlos Huynh MD Approver2 : Report Date : 01/09/2018 17:36:13 My Comment : Date of service: 01/09/2018 PROCEDURE: Radiographs of the right elbow. HISTORY: SWELLING ABSCESS COMPARISON: No prior. FINDINGS: BONES: Tiny calcific fragment posterior to ossification of the insertion of the triceps tendon is identified which could reflect partial tendon tear or chip fracture off the enthesiophyte alone. Clinically correlate further. JOINTS: Limited degenerative cortical sclerosis appreciate throughout the joints of the right elbow. No subluxation or dislocation identified. SOFT TISSUES: Vascular calcifications are identified anteriorly. Prominent soft tissue edema overlies the olecranon process with gas within the soft tissue may reflect laceration or penetrating injury. Clinically correlate further. JOINT EFFUSION: None. OTHER FINDINGS: None. IMPRESSION: No large fracture or dislocation identified right elbow. However, a tiny bony fragment is seen posterior to the enthesiophyte related to the insertion of the triceps tendon at the olecranon process. Clinically correlate for potential partial tendon tear or simple chip fracture related to enthesophyte. Prominent overlying soft tissue edema with emphysema may indicate laceration or penetrating injury. Clinically correlate. Assessment & Plan (1) Septic olecranon bursitis of right elbow Assessment and Plan: r/o septic olecranon bursits, r/o tophaceous gout bursitis loculated, air and calcifications seen on imaging caseous discharge expressed heterogenous mass noted on CT, not abscess recommend aerobic/anaerobic/AFB/fungal cultures vs excision labs ordered including uric acid cultures +MSSA but could be skin cally d/w Dr. Walden, agrees with above Status: Acute
--- NOTE | 2018-01-12 13:47 | CP.PCM.PN ---
Subjective - Date & Time of Evaluation Date of Evaluation: 01/12/18 Time of Evaluation: 13:46 - Subjective Subjective: events noted Objective - Vital Signs/Intake and Output Vital Signs (last 24 hours): Temp Pulse Resp BP Pulse Ox 97.9 F 88 20 135/70 97 01/12/18 07:24 01/12/18 07:24 01/12/18 07:24 01/12/18 07:24 01/12/18 07:24 Intake and Output: 01/12/18 01/12/18 06:59 18:59 Intake Total 400 Balance 400 - Medications Medications: Current Medications Albuterol/Ipratropium (Combivent Respimat) 1 puff IH RQ12 [facility] Albuterol/Ipratropium (Duoneb 3 Mg/0.5 Mg (3 Ml) Ud) 3 ml INH RQ6 [facility] Last Admin: 01/12/18 08:34 Dose: Not Given Apixaban (Eliquis) 2.5 mg PO BID [facility] Last Admin: 01/12/18 11:00 Dose: 2.5 mg Celecoxib (Celebrex) 200 mg PO Q12 PRN PRN Reason: Pain, moderate (4-7) Ferrous Sulfate (Feosol) 325 mg PO BID [facility] Last Admin: 01/12/18 11:00 Dose: 325 mg Finasteride (Proscar) 5 mg PO DAILY [facility] Last Admin: 01/12/18 11:00 Dose: 5 mg Fluticasone/Vilanterol (Breo Ellipta 100-25 Mcg Inh) 1 puff INH RQ24 [facility] Last Admin: 01/12/18 08:35 Dose: Not Given Folic Acid (Folic Acid) 1 mg PO DAILY [facility] Last Admin: 01/12/18 11:00 Dose: 1 mg Piperacillin Sod/Tazobactam (Sod 3.375 gm/ Sodium Chloride) 100 mls @ 200 mls/hr IVPB Q8H [facility]; Protocol Last Admin: 01/12/18 08:51 Dose: 200 mls/hr Insulin Aspart (Novolog) 0 unit SC ACHS [facility]; Protocol Last Admin: 01/12/18 12:14 Dose: Not Given Metolazone (Zaroxolyn) 5 mg PO DAILY [facility] Last Admin: 01/12/18 11:01 Dose: 5 mg Morphine Sulfate (Morphine) 4 mg IVP Q6 PRN PRN Reason: Pain, severe (8-10) Last Admin: 01/11/18 14:18 Dose: 4 mg Pantoprazole Sodium (Protonix Ec Tab) 40 mg PO DAILY [facility] Last Admin: 01/12/18 11:00 Dose: 40 mg Pioglitazone HCl (Actos) 30 mg PO DAILY [facility] Last Admin: 01/12/18 11:01 Dose: 30 mg Pregabalin (Lyrica) 75 mg PO Q12 PRN PRN Reason: Pain, moderate (4-7) Last Admin: 01/11/18 17:32 Dose: 75 mg Tamsulosin HCl (Flomax) 0.4 mg PO DAILY [facility] Last Admin: 01/12/18 11:00 Dose: 0.4 mg Temazepam (Restoril) 15 mg PO HS PRN PRN Reason: Sleep - Labs Labs: 01/09/18 17:28 01/09/18 17:28 - Constitutional Appears: No Acute Distress - Cardiovascular Exam Cardiovascular Exam: REGULAR RHYTHM, +S1, +S2 - GI/Abdominal Exam GI & Abdominal Exam: Soft, Normal Bowel Sounds. absent: Tenderness - Extremities Exam Extremities Exam: absent: Calf Tenderness, Pedal Edema Additional comments: R. elbow swelling - Neurological Exam Neurological Exam: Alert, Awake, Oriented x3 Assessment and Plan - Assessment and Plan (Free Text) Assessment: 87 y/o presetns with 1. LLE edema after a flight 2. Progression of R. Olecranon/elbow abscess Dr. 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 paced with atrial tachycardia: rate controlled Ordered: 2D echo to eval LV function Patient should be optimized with Toprol or coreg; ASA 81 and statin therapy CKD III Monitor lytes BP control to SBP <130 Losartan 25 if ok with renal Anemia noted ? related to CKD/chronic disease hx of AFlutter/fib EKG is V. paced likely mode-swithed due to AFIB/flutter ON eliquis 2.5 BID sUGGEST COREG OR TOPROL xl FOR RATE CONTROL
--- NOTE | 2018-01-12 19:41 | CARD ---
APPROVED REPORT Date of service: 01/09/2018 EKG Measurement Heart [id number] <Conclusion> Ventricular-paced rhythm Abnormal ECG
--- NOTE | 2018-01-12 23:47 | CP.PCM.PN ---
Subjective - Date & Time of Evaluation Date of Evaluation: 01/12/18 Time of Evaluation: 07:40 - Subjective Subjective: clinically same Objective - Vital Signs/Intake and Output Vital Signs (last 24 hours): Temp Pulse Resp BP Pulse Ox 98.2 F 86 20 113/61 96 01/12/18 23:20 01/12/18 23:20 01/12/18 23:20 01/12/18 23:20 01/12/18 23:20 Intake and Output: 01/12/18 01/13/18 18:59 06:59 Intake Total 600 Balance 600 - Medications Medications: Current Medications Albuterol/Ipratropium (Combivent Respimat) 1 puff IH RQ12 [facility] Albuterol/Ipratropium (Duoneb 3 Mg/0.5 Mg (3 Ml) Ud) 3 ml INH RQ6 [facility] Last Admin: 01/12/18 19:47 Dose: 3 ml Apixaban (Eliquis) 2.5 mg PO BID [facility] Last Admin: 01/12/18 17:47 Dose: 2.5 mg Celecoxib (Celebrex) 200 mg PO Q12 PRN PRN Reason: Pain, moderate (4-7) Ferrous Sulfate (Feosol) 325 mg PO BID [facility] Last Admin: 01/12/18 17:47 Dose: 325 mg Finasteride (Proscar) 5 mg PO DAILY [facility] Last Admin: 01/12/18 11:00 Dose: 5 mg Fluticasone/Vilanterol (Breo Ellipta 100-25 Mcg Inh) 1 puff INH RQ24 [facility] Last Admin: 01/12/18 08:35 Dose: Not Given Folic Acid (Folic Acid) 1 mg PO DAILY [facility] Last Admin: 01/12/18 11:00 Dose: 1 mg Piperacillin Sod/Tazobactam (Sod 3.375 gm/ Sodium Chloride) 100 mls @ 200 mls/hr IVPB Q8H [facility]; Protocol Last Admin: 01/12/18 17:00 Dose: 200 mls/hr Insulin Aspart (Novolog) 0 unit SC ACHS [facility]; Protocol Last Admin: 01/12/18 22:51 Dose: Not Given Metolazone (Zaroxolyn) 5 mg PO DAILY [facility] Last Admin: 01/12/18 11:01 Dose: 5 mg Morphine Sulfate (Morphine) 4 mg IVP Q6 PRN PRN Reason: Pain, severe (8-10) Last Admin: 01/11/18 14:18 Dose: 4 mg Pantoprazole Sodium (Protonix Ec Tab) 40 mg PO DAILY [facility] Last Admin: 01/12/18 11:00 Dose: 40 mg Pioglitazone HCl (Actos) 30 mg PO DAILY [facility] Last Admin: 01/12/18 11:01 Dose: 30 mg Pregabalin (Lyrica) 75 mg PO Q12 PRN PRN Reason: Pain, moderate (4-7) Last Admin: 01/11/18 17:32 Dose: 75 mg Tamsulosin HCl (Flomax) 0.4 mg PO DAILY [facility] Last Admin: 01/12/18 11:00 Dose: 0.4 mg Temazepam (Restoril) 15 mg PO HS PRN PRN Reason: Sleep - Labs Labs: 01/09/18 17:28 01/09/18 17:28 - Constitutional Appears: Well - Head Exam Head Exam: ATRAUMATIC, NORMAL INSPECTION, NORMOCEPHALIC - Eye Exam Eye Exam: EOMI, Normal appearance, PERRL Pupil Exam: NORMAL ACCOMODATION, PERRL - ENT Exam ENT Exam: Mucous Membranes Moist, Normal Exam - Neck Exam Neck Exam: Full ROM, Normal Inspection. absent: Lymphadenopathy - Respiratory Exam Respiratory Exam: Decreased Breath Sounds - Cardiovascular Exam Cardiovascular Exam: REGULAR RHYTHM, +S1, +S2 - GI/Abdominal Exam GI & Abdominal Exam: Soft, Diminished Bowel Sounds - Rectal Exam Rectal Exam: Deferred
[2018-01-13] MEDS: Piperacillin/Tazobact 3.375 GM in Sodium Chloride 100 ML IVPB SCH ×3 (00:50→16:40)
[2018-01-13] MEDS: Albuterol-Ipratrop 3 mg / 0.5 (3 ml) UD INH SCH ×4 (01:55→20:03)
[2018-01-13] MEDS: (Novolog) Insulin Aspart, Recombinant 100 u/ml 10 ml vial SC SCH ×4 (08:03→21:29)
[2018-01-13 08:13] LABS: INR 1.5; PROTHROMBIN TIME 16.9 SECONDS (9.7-12.2)
[2018-01-13 08:23] LABS: ALB/GLOB RATIO 1.1 (1.0-2.1); ALBUMIN 3.7 g/dL (3.5-5.0); CALCIUM 9.2 mg/dl (8.6-10.4); URIC ACID 7.6 mg/dL (3.5-8.5)
[2018-01-13] MEDS ORDERED: Perflutren Lipid Microsphere 1.5 ML SUS IV ONE (08:45)
[2018-01-13 08:49] LABS: BASO # 0.1 K/uL (0.0-0.2); BASO % 1.2 % (0.0-2.0); EOS # 0.8 K/uL (0.0-0.7); EOS % 10.2 % (0.0-4.0); HEMOGLOBIN 8.5 g/dL (12.0-18.0); LYMPH % 12.9 % (20.0-40.0); MEAN CELL VOLUME 87.7 fL (80.0-94.0); MEAN CORPUSCULAR HEMOGLOBIN 29.4 pg (27.0-31.0); MEAN CORPUSCULAR HGB CONC 33.5 g/dL (33.0-37.0); MEAN PLATELET VOLUME 10.1 fL (7.2-11.7); MONO # 0.6 K/uL (0.0-0.8); MONO % 8.5 % (0.0-10.0); NEUT # 5.1 K/uL (1.8-7.0); NEUT % 67.2 % (50.0-75.0); NRBC % 0.1 % (0.0-2.0); RBC 2.88 Mil/uL (4.40-5.90); RED CELL DISTRIBUTION WIDTH 15.1 % (11.5-14.5); WHITE BLOOD COUNT 7.5 K/uL (4.8-10.8)
[2018-01-13] MEDS: Fluticasone-Vilanterol 100/25mcg Diskus INH SCH (09:24)
[2018-01-13] MEDS: Pantoprazole 40 mg EC Tab PO SCH (09:56)
[2018-01-13] MEDS: metOLazone 5 MG TAB PO SCH (09:56)
[2018-01-13] MEDS ORDERED: Lidocaine 1% MPF (30 ml) Inj INFIL ONE (10:30)
--- NOTE | 2018-01-13 12:47 | CP.PCM.PN ---
Subjective - Date & Time of Evaluation Date of Evaluation: 01/13/18 Time of Evaluation: 07:40 - Subjective Subjective: clinically same Objective - Vital Signs/Intake and Output Vital Signs (last 24 hours): Temp Pulse Resp BP Pulse Ox 98.2 F 86 20 113/61 96 01/12/18 23:20 01/12/18 23:20 01/12/18 23:20 01/12/18 23:20 01/12/18 23:20 Intake and Output: 01/13/18 01/13/18 06:59 18:59 Intake Total 300 Balance 300 - Medications Medications: Current Medications Albuterol/Ipratropium (Combivent Respimat) 1 puff IH RQ12 [facility] Albuterol/Ipratropium (Duoneb 3 Mg/0.5 Mg (3 Ml) Ud) 3 ml INH RQ6 [facility] Last Admin: 01/13/18 09:24 Dose: Not Given Apixaban (Eliquis) 2.5 mg PO BID [facility] Last Admin: 01/13/18 09:56 Dose: 2.5 mg Celecoxib (Celebrex) 200 mg PO Q12 PRN PRN Reason: Pain, moderate (4-7) Last Admin: 01/13/18 10:07 Dose: 200 mg Ferrous Sulfate (Feosol) 325 mg PO BID [facility] Last Admin: 01/13/18 09:56 Dose: 325 mg Finasteride (Proscar) 5 mg PO DAILY [facility] Last Admin: 01/13/18 09:56 Dose: 5 mg Fluticasone/Vilanterol (Breo Ellipta 100-25 Mcg Inh) 1 puff INH RQ24 [facility] Last Admin: 01/13/18 09:24 Dose: Not Given Folic Acid (Folic Acid) 1 mg PO DAILY [facility] Last Admin: 01/13/18 09:56 Dose: 1 mg Piperacillin Sod/Tazobactam (Sod 3.375 gm/ Sodium Chloride) 100 mls @ 200 ml s/hr IVPB Q8H [facility]; Protocol Last Admin: 01/13/18 08:09 Dose: 200 mls/hr Insulin Aspart (Novolog) 0 unit SC ACHS [facility]; Protocol Last Admin: 01/13/18 11:49 Dose: 2 u Metolazone (Zaroxolyn) 5 mg PO DAILY [facility] Last Admin: 01/13/18 09:56 Dose: 5 mg Morphine Sulfate (Morphine) 4 mg IVP Q6 PRN PRN Reason: Pain, severe (8-10) Last Admin: 01/11/18 14:18 Dose: 4 mg Pantoprazole Sodium (Protonix Ec Tab) 40 mg PO DAILY [facility] Last Admin: 01/13/18 09:56 Dose: 40 mg Pioglitazone HCl (Actos) 30 mg PO DAILY [facility] Last Admin: 01/13/18 09:56 Dose: 30 mg Pregabalin (Lyrica) 75 mg PO Q12 PRN PRN Reason: Pain, moderate (4-7) Last Admin: 01/11/18 17:32 Dose: 75 mg Tamsulosin HCl (Flomax) 0.4 mg PO DAILY [facility] Last Admin: 01/13/18 10:13 Dose: 0.4 mg Temazepam (Restoril) 15 mg PO HS PRN PRN Reason: Sleep - Labs Labs: 01/13/18 07:59 01/13/18 07:59 PT 16.9 SECONDS (9.7-12.2) H 01/13/18 07:59 INR 1.5 01/13/18 07:59 APTT 23 SECONDS (21-34) 01/13/18 07:59 - Constitutional Appears: Well - Head Exam Head Exam: ATRAUMATIC, NORMAL INSPECTION, NORMOCEPHALIC - Eye Exam Eye Exam: EOMI, Normal appearance, PERRL Pupil Exam: NORMAL ACCOMODATION, PERRL - ENT Exam ENT Exam: Mucous Membranes Moist, Normal Exam - Neck Exam Neck Exam: Full ROM, Normal Inspection. absent: Lymphadenopathy - Respiratory Exam Respiratory Exam: Decreased Breath Sounds - Cardiovascular Exam Cardiovascular Exam: REGULAR RHYTHM, +S1, +S2 - GI/Abdominal Exam GI & Abdominal Exam: Soft, Diminished Bowel Sounds - Rectal Exam Rectal Exam: Deferred
--- NOTE | 2018-01-13 17:00 | CARD ---
APPROVED REPORT Date of service: 01/13/2018 EXAM: Two-dimensional and M-mode echocardiogram with Doppler, color Doppler with contrast. INDICATION Congestive Heart Failure Echo Enhancing Agent Indication: Rule out thrombus Agent/Amount Used: Definity 2D DIMENSIONS IVSd0.9 (0.7-1.1cm)LVDd5.4 (3.9-5.9cm) PWd0.9 (0.7-1.1cm)LA [id number] (18-58mL) LVDs4.1 (2.5-4.0cm)FS (%) 22.6 % LVEF (%)45.1 (>50%)LVEF (Rolle's)46.93 % M-Mode DIMENSIONS Left Atrium (MM)3.82 (2.5-4.0cm)IVSd0.89 (0.7-1.1cm) Aortic Root3.57 (2.2-3.7cm)LVDd5.31 (4.0-5.6cm) Aortic Cusp Exc.2.15 (1.5-2.0cm)PWd0.89 (0.7-1.1cm) FS (%) 21 %LVDs4.21 (2.0-3.8cm) LVEF (%)50 (>50%) Mitral Valve MV E Qmgdeesv036.4cm/sMV A Edmhofbn66.2cm/sE/A ratio2.0 WGTS417.30 cm/s TDI Lateral E' Peak V7.12cm/sMedial E' Peak V5.32cm/sE/Lateral E'18.0 E/Medial E'24.1 Tricuspid Valve TR Peak Csyxompm633ww/sTR Peak Gr.[id number] LEFT VENTRICLE The left ventricle is normal size. There is borderline concentric left ventricular hypertrophy. The systolic function is moderately impaired. Apical motion consistent with pacemaker activation. No left ventricle thrombus noted on this study. RIGHT VENTRICLE The right ventricle is normal size. There is normal right ventricular wall thickness. The right ventricular systolic function is normal. ATRIA The left atrium is mildly dilated. The right atrium is mildly dilated. AORTIC VALVE The aortic valve is not well visualized. No aortic regurgitation is present. There is no aortic valvular stenosis. MITRAL VALVE The mitral valve is mildly thickened. There is no mitral valve stenosis. Mitral regurgitation is moderate. TRICUSPID VALVE There is severe pulmonary hypertension. GREAT VESSELS The aortic root is normal in size. The IVC is dilated. <Conclusion> The left ventricle is normal size. There is borderline concentric left ventricular hypertrophy. The systolic function is moderately impaired. Apical motion consistent with pacemaker activation. No left ventricle thrombus noted on this study. There is no mitral valve stenosis. There is severe pulmonary hypertension.
[2018-01-13] MEDS ORDERED: Lidocaine 100 MG in Sodium Chloride 0.9% 100 ML IV ONE (18:08)
[2018-01-13] MEDS ORDERED: Lidocaine 1% Inj (20ml) IV ONE (18:10)
[2018-01-13] MEDS ORDERED: Lidocaine 2% Inj (20ml) INFIL ONE (18:16)
[2018-01-13] MEDS: Morphine 4 MG/ML VIAL IVP PRN (18:45)
[2018-01-14] MEDS: Piperacillin/Tazobact 3.375 GM in Sodium Chloride 100 ML IVPB SCH ×2 (01:00→08:41)
[2018-01-14] MEDS: Albuterol-Ipratrop 3 mg / 0.5 (3 ml) UD INH SCH ×3 (01:32→13:47)
--- NOTE | 2018-01-14 04:46 | CON ---
DATE: 01/13/2018 CONSULTATION AND PROCEDURE NOTE CHIEF COMPLAINT: Right elbow swelling. HISTORY OF PRESENT ILLNESS: The patient is an 87-year-old male who was admitted to the emergency room for worsening right elbow pain for the past few weeks. The patient noted some serous drainage from the right elbow. He does have a history of left elbow olecranon bursitis. The patient denies any fever or chills. Denies any significant purulent discharge. Denies any instability. Denies any paresthesias or motor weakness of the elbow distally. Denies any recent history of trauma. PAST MEDICAL HISTORY: Chronic kidney disease. PHYSICAL EXAMINATION: EXTREMITIES: Examination of the patient's right elbow, there is a swelling of the olecranon bursa. The patient has nearly a full symmetric range of motion of the elbow. Serous drainage from the olecranon bursa. Neurovascularly intact distally. IMAGING: X-ray of the patient's right elbow and CT scan consistent with calcific focus within the olecranon bursa consistent with inflammatory olecranon bursitis. ASSESSMENT AND PLAN: An 87-year-old male with right elbow calcification and inflammatory olecranon bursitis. TREATMENT: I had detailed discussion with the patient for reviewing his history, physical exam and imaging findings. I presented the patient different treatment options of aspiration, cultures and bedside irrigation and debridement. I reviewed the risks and benefits of the procedure, which include bleeding, infection, neurovascular damage, continued pain, continued infection, need for further procedure, blood clots, among others. The patient fully comprehended the risks and benefits and opted to proceed. PROCEDURE: Under strict sterile condition, the patient's right elbow was draped and prepped. At first, local anesthetic was given of 10 mL of 2% lidocaine. Then, a small 1-cm superficial incision was made over the olecranon bursa. Three culture sets were taken. All the fluid was expressed from the olecranon bursa. No purulent discharge was noted. There was also calcification that was also expressed from the wound. Afterwards, the wound was wrapped with sterile gauze. There was no complication of the procedure. We will follow the culture results. The patient will continue on antibiotics and follow up in my office as an outpatient. Lucía Walden MD [facility] # [id number]
[2018-01-14] MEDS ORDERED: Albuterol-Ipratrop 3 mg / 0.5 (3 ml) UD INH STA (06:42)
[2018-01-14] MEDS: (Novolog) Insulin Aspart, Recombinant 100 u/ml 10 ml vial SC SCH ×2 (08:18→12:12)
[2018-01-14 08:36] VITALS: BP 152/62; PULSE 88; TEMP 98.7; O2SAT 100
[2018-01-14] MEDS: metOLazone 5 MG TAB PO SCH (09:42)
[2018-01-14] MEDS: Pantoprazole 40 mg EC Tab PO SCH (09:42)
--- NOTE | 2018-01-14 12:49 | CP.PCM.PN ---
Subjective - Date & Time of Evaluation Date of Evaluation: 01/14/18 Time of Evaluation: 12:46 - Subjective Subjective: Patient states elbow pain is controlled. No increased pain after procedure. Denies numbness/tingling. Objective - Vital Signs/Intake and Output Vital Signs (last 24 hours): Temp Pulse Resp BP Pulse Ox 98.7 F 88 20 152/62 H 100 01/14/18 08:32 01/14/18 08:32 01/14/18 08:32 01/14/18 08:32 01/14/18 08:32 Intake and Output: 01/14/18 01/14/18 06:59 18:59 Intake Total 340 Balance 340 - Medications Medications: Current Medications Albuterol/Ipratropium (Combivent Respimat) 1 puff IH RQ12 [facility] Albuterol/Ipratropium (Duoneb 3 Mg/0.5 Mg (3 Ml) Ud) 3 ml INH RQ6 [facility] Last Admin: 01/14/18 07:00 Dose: 3 ml Apixaban (Eliquis) 2.5 mg PO BID [facility] Last Admin: 01/14/18 09:42 Dose: 2.5 mg Celecoxib (Celebrex) 200 mg PO Q12 PRN PRN Reason: Pain, moderate (4-7) Last Admin: 01/13/18 10:07 Dose: 200 mg Ferrous Sulfate (Feosol) 325 mg PO BID [facility] Last Admin: 01/14/18 09:42 Dose: 325 mg Finasteride (Proscar) 5 mg PO DAILY [facility] Last Admin: 01/14/18 09:42 Dose: 5 mg Fluticasone/Vilanterol (Breo Ellipta 100-25 Mcg Inh) 1 puff INH RQ24 [facility] Last Admin: 01/13/18 09:24 Dose: Not Given Folic Acid (Folic Acid) 1 mg PO DAILY [facility] Last Admin: 01/14/18 09:42 Dose: 1 mg Piperacillin Sod/Tazobactam (Sod 3.375 gm/ Sodium Chloride) 100 mls @ 200 mls/hr IVPB Q8H [facility]; Protocol Last Admin: 01/14/18 08:41 Dose: 200 mls/hr Insulin Aspart (Novolog) 0 unit SC ACHS [facility]; Protocol Last Admin: 01/14/18 12:12 Dose: Not Given Metolazone (Zaroxolyn) 5 mg PO DAILY [facility] Last Admin: 01/14/18 09:42 Dose: 5 mg Morphine Sulfate (Morphine) 4 mg IVP Q6 PRN PRN Reason: Pain, severe (8-10) Last Admin: 01/13/18 18:45 Dose: 4 mg Pantoprazole Sodium (Protonix Ec Tab) 40 mg PO DAILY [facility] Last Admin: 01/14/18 09:42 Dose: 40 mg Pioglitazone HCl (Actos) 30 mg PO DAILY [facility] Last Admin: 01/14/18 09:42 Dose: 30 mg Pregabalin (Lyrica) 75 mg PO Q12 PRN PRN Reason: Pain, moderate (4-7) Last Admin: 01/13/18 17:47 Dose: 75 mg Tamsulosin HCl (Flomax) 0.4 mg PO DAILY [facility] Last Admin: 01/14/18 09:42 Dose: 0.4 mg Temazepam (Restoril) 15 mg PO HS PRN PRN Reason: Sleep - Labs Labs: 01/13/18 07:59 01/13/18 07:59 PT 16.9 SECONDS (9.7-12.2) H 01/13/18 07:59 INR 1.5 01/13/18 07:59 APTT 23 SECONDS (21-34) 01/13/18 07:59 - Extremities Exam Additional comments: Right elbow: dressing intact, no visible drainage. +ROM fingers, wrist, sensation intact +radial pulse, full ROM elbow without pain Assessment and Plan (1) Septic olecranon bursitis of right elbow Assessment & Plan: s/p I&D bedside yesterday cultures prelim negative, will follow up continue antibiotics per ID monitor wound at this time, awaiting cultures d/w Dr. Walden, agrees with above Status: Acute
[2018-01-14] MEDS: Fluticasone-Vilanterol 100/25mcg Diskus INH SCH (13:46)
--- NOTE | 2018-01-14 14:30 | CP.PCM.PN ---
Subjective - Date & Time of Evaluation Date of Evaluation: 01/14/18 Time of Evaluation: 07:30 - Subjective Subjective: clinically same Objective - Vital Signs/Intake and Output Vital Signs (last 24 hours): Temp Pulse Resp BP Pulse Ox 98.7 F 88 20 152/62 H 100 01/14/18 08:32 01/14/18 08:32 01/14/18 08:32 01/14/18 08:32 01/14/18 08:32 Intake and Output: 01/14/18 01/14/18 06:59 18:59 Intake Total 340 Balance 340 - Medications Medications: Current Medications Albuterol/Ipratropium (Combivent Respimat) 1 puff IH RQ12 [facility] Albuterol/Ipratropium (Duoneb 3 Mg/0.5 Mg (3 Ml) Ud) 3 ml INH RQ6 [facility] Last Admin: 01/14/18 13:47 Dose: 3 ml Apixaban (Eliquis) 2.5 mg PO BID [facility] Last Admin: 01/14/18 09:42 Dose: 2.5 mg Celecoxib (Celebrex) 200 mg PO Q12 PRN PRN Reason: Pain, moderate (4-7) Last Admin: 01/13/18 10:07 Dose: 200 mg Ferrous Sulfate (Feosol) 325 mg PO BID [facility] [place] Last Admin: 01/14/18 09:42 Dose: 325 mg Finasteride (Proscar) 5 mg PO DAILY [facility] [place] Last Admin: 01/14/18 09:42 Dose: 5 mg Fluticasone/Vilanterol (Breo Ellipta 100-25 Mcg Inh) 1 puff INH RQ24 [facility] [place] Last Admin: 01/14/18 13:46 Dose: Not Given Folic Acid (Folic Acid) 1 mg PO DAILY [facility] [place] Last Admin: 01/14/18 09:42 Dose: 1 mg Piperacillin Sod/Tazobactam (Sod 3.375 gm/ Sodium Chloride) 100 mls @ 200 mls/h r IVPB Q8H [facility] [place]; Protocol Last Admin: 01/14/18 08:41 Dose: 200 mls/hr Insulin Aspart (Novolog) 0 unit SC ACHS [facility] [place]; Protocol Last Admin: 01/14/18 12:12 Dose: Not Given Metolazone (Zaroxolyn) 5 mg PO DAILY [facility] [place] Last Admin: 01/14/18 09:42 Dose: 5 mg Morphine Sulfate (Morphine) 4 mg IVP Q6 PRN PRN Reason: Pain, severe (8-10) Last Admin: 01/13/18 18:45 Dose: 4 mg Pantoprazole Sodium (Protonix Ec Tab) 40 mg PO DAILY [facility] [place] Last Admin: 01/14/18 09:42 Dose: 40 mg Pioglitazone HCl (Actos) 30 mg PO DAILY [facility] [place] Last Admin: 01/14/18 09:42 Dose: 30 mg Pregabalin (Lyrica) 75 mg PO Q12 PRN PRN Reason: Pain, moderate (4-7) Last Admin: 01/13/18 17:47 Dose: 75 mg Tamsulosin HCl (Flomax) 0.4 mg PO DAILY [facility] [place] Last Admin: 01/14/18 09:42 Dose: 0.4 mg Temazepam (Restoril) 15 mg PO HS PRN PRN Reason: Sleep - Labs Labs: 01/13/18 07:59 01/13/18 07:59 PT 16.9 SECONDS (9.7-12.2) H 01/13/18 07:59 INR 1.5 01/13/18 07:59 APTT 23 SECONDS (21-34) 01/13/18 07:59 - Constitutional Appears: Well - Head Exam Head Exam: ATRAUMATIC, NORMAL INSPECTION, NORMOCEPHALIC - Eye Exam Eye Exam: EOMI, Normal appearance, PERRL Pupil Exam: NORMAL ACCOMODATION, PERRL - ENT Exam ENT Exam: Mucous Membranes Moist, Normal Exam - Neck Exam Neck Exam: Full ROM, Normal Inspection. absent: Lymphadenopathy - Respiratory Exam Respiratory Exam: Decreased Breath Sounds - Cardiovascular Exam Cardiovascular Exam: REGULAR RHYTHM, +S1, +S2 - GI/Abdominal Exam GI & Abdominal Exam: Soft, Diminished Bowel Sounds - Rectal Exam Rectal Exam: Deferred
--- NOTE | 2018-01-14 14:44 | CP.PCM.PN ---
Subjective - Date & Time of Evaluation Date of Evaluation: 01/14/18 Time of Evaluation: 08:00 - Subjective Subjective: less pain and swelling d/c on PO rx follow up with ortho Objective - Vital Signs/Intake and Output Vital Signs (last 24 hours): Temp Pulse Resp BP Pulse Ox 98.7 F 88 20 152/62 H 100 01/14/18 08:32 01/14/18 08:32 01/14/18 08:32 01/14/18 08:32 01/14/18 08:32 Intake and Output: 01/14/18 01/14/18 06:59 18:59 Intake Total 920 Balance 920 - Medications Medications: Current Medications Albuterol/Ipratropium (Combivent Respimat) 1 puff IH RQ12 [facility] Albuterol/Ipratropium (Duoneb 3 Mg/0.5 Mg (3 Ml) Ud) 3 ml INH RQ6 [facility] Last Admin: 01/14/18 13:47 Dose: 3 ml Apixaban (Eliquis) 2.5 mg PO BID [facility] Last Admin: 01/14/18 09:42 Dose: 2.5 mg Celecoxib (Celebrex) 200 mg PO Q12 PRN PRN Reason: Pain, moderate (4-7) Last Admin: 01/13/18 10:07 Dose: 200 mg Ferrous Sulfate (Feosol) 325 mg PO BID [facility] Last Admin: 01/14/18 09:42 Dose: 325 mg Finasteride (Proscar) 5 mg PO DAILY [facility] Last Admin: 01/14/18 09:42 Dose: 5 mg Fluticasone/Vilanterol (Breo Ellipta 100-25 Mcg Inh) 1 puff INH RQ24 [facility] Last Admin: 01/14/18 13:46 Dose: Not Given Folic Acid (Folic Acid) 1 mg PO DAILY [facility] Last Admin: 01/14/18 09:42 Dose: 1 mg Piperacillin Sod/Tazobactam (Sod 3.375 gm/ Sodium Chloride) 100 mls @ 200 mls/hr IVPB Q8H [facility]; Protocol Last Admin: 01/14/18 08:41 Dose: 200 mls/hr Insulin Aspart (Novolog) 0 unit SC ACHS [facility]; Protocol Last Admin: 01/14/18 12:12 Dose: Not Given Metolazone (Zaroxolyn) 5 mg PO DAILY [facility] Last Admin: 01/14/18 09:42 Dose: 5 mg Morphine Sulfate (Morphine) 4 mg IVP Q6 PRN PRN Reason: Pain, severe (8-10) Last Admin: 01/13/18 18:45 Dose: 4 mg Pantoprazole Sodium (Protonix Ec Tab) 40 mg PO DAILY [facility] Last Admin: 01/14/18 09:42 Dose: 40 mg Pioglitazone HCl (Actos) 30 mg PO DAILY [facility] Last Admin: 01/14/18 09:42 Dose: 30 mg Pregabalin (Lyrica) 75 mg PO Q12 PRN PRN Reason: Pain, moderate (4-7) Last Admin: 01/13/18 17:47 Dose: 75 mg Tamsulosin HCl (Flomax) 0.4 mg PO DAILY [facility] Last Admin: 01/14/18 09:42 Dose: 0.4 mg Temazepam (Restoril) 15 mg PO HS PRN PRN Reason: Sleep - Labs Labs: 01/13/18 07:59 01/13/18 07:59 PT 16.9 SECONDS (9.7-12.2) H 01/13/18 07:59 INR 1.5 01/13/18 07:59 APTT 23 SECONDS (21-34) 01/13/18 07:59 - Constitutional Appears: Non-toxic - Head Exam Head Exam: NORMOCEPHALIC - Eye Exam Eye Exam: absent: Scleral icterus - ENT Exam ENT Exam: Mucous Membranes Dry - Neck Exam Neck Exam: absent: Lymphadenopathy - Respiratory Exam Respiratory Exam: Decreased Breath Sounds - Cardiovascular Exam Cardiovascular Exam: REGULAR RHYTHM - GI/Abdominal Exam GI & Abdominal Exam: Distended - Rectal Exam Rectal Exam: Deferred Assessment and Plan (1) Leg swelling Status: Acute (2) Mass of elbow region Status: Acute (3) 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
--- NOTE | 2018-01-14 15:52 | CP.PCM.PN ---
Subjective - Date & Time of Evaluation Date of Evaluation: 01/14/18 Time of Evaluation: 11:00 - Subjective Subjective: alert, orientedx3, denies sob or chest pains, NAD. Objective - Vital Signs/Intake and Output Vital Signs (last 24 hours): Temp Pulse Resp BP Pulse Ox 98.7 F 88 20 152/62 H 100 01/14/18 08:32 01/14/18 08:32 01/14/18 08:32 01/14/18 08:32 01/14/18 08:32 Intake and Output: 01/14/18 01/14/18 06:59 18:59 Intake Total 920 Balance 920 - Medications Medications: Current Medications Albuterol/Ipratropium (Combivent Respimat) 1 puff IH RQ12 [facility] Albuterol/Ipratropium (Duoneb 3 Mg/0.5 Mg (3 Ml) Ud) 3 ml INH RQ6 [facility] Last Admin: 01/14/18 13:47 Dose: 3 ml Apixaban (Eliquis) 2.5 mg PO BID [facility] Last Admin: 01/14/18 09:42 Dose: 2.5 mg Celecoxib (Celebrex) 200 mg PO Q12 PRN PRN Reason: Pain, moderate (4-7) Last Admin: 01/13/18 10:07 Dose: 200 mg Ferrous Sulfate (Feosol) 325 mg PO BID [facility] Last Admin: 01/14/18 09:42 Dose: 325 mg Finasteride (Proscar) 5 mg PO DAILY [facility] Last Admin: 01/14/18 09:42 Dose: 5 mg Fluticasone/Vilanterol (Breo Ellipta 100-25 Mcg Inh) 1 puff INH RQ24 [facility] Last Admin: 01/14/18 13:46 Dose: Not Given Folic Acid (Folic Acid) 1 mg PO DAILY [facility] Last Admin: 01/14/18 09:42 Dose: 1 mg Piperacillin Sod/Tazobactam (Sod 3.375 gm/ Sodium Chloride) 100 mls @ 200 mls/hr IVPB Q8H [facility]; Protocol Last Admin: 01/14/18 08:41 Dose: 200 mls/hr Insulin Aspart (Novolog) 0 unit SC ACHS [facility]; Protocol Last Admin: 01/14/18 12:12 Dose: Not Given Metolazone (Zaroxolyn) 5 mg PO DAILY [facility] Last Admin: 01/14/18 09:42 Dose: 5 mg Mupirocin (Bactroban Ointment) 0 gm TOP DAILY [facility] Pantoprazole Sodium (Protonix Ec Tab) 40 mg PO DAILY [facility] Last Admin: 01/14/18 09:42 Dose: 40 mg Pioglitazone HCl (Actos) 30 mg PO DAILY [facility] Last Admin: 01/14/18 09:42 Dose: 30 mg Pregabalin (Lyrica) 75 mg PO Q12 PRN PRN Reason: Pain, moderate (4-7) Last Admin: 01/13/18 17:47 Dose: 75 mg Tamsulosin HCl (Flomax) 0.4 mg PO DAILY [facility] Last Admin: 01/14/18 09:42 Dose: 0.4 mg Temazepam (Restoril) 15 mg PO HS PRN PRN Reason: Sleep - Labs Labs: 01/13/18 07:59 01/13/18 07:59 PT 16.9 SECONDS (9.7-12.2) H 01/13/18 07:59 INR 1.5 01/13/18 07:59 APTT 23 SECONDS (21-34) 01/13/18 07:59 Assessment and Plan - Assessment and Plan (Free Text) Assessment: 87 year old male admitted with elbow abcess, incision and drainage done by the ortho, seen and examined. Cleared by ortho , discussed with DR Izabella Colon, plan to discharge home today on keflex by mouth for 10 days. Dressing to right elbow to be changed daily, demonstrated to the how to do at home. Advised to follow up with ortho and PMD in 1 week.
--- NOTE | 2018-01-14 16:02 | CP.PCM.PN ---
Subjective - Date & Time of Evaluation Date of Evaluation: 01/14/18 Time of Evaluation: 11:00 - Subjective Subjective: Events reviewed Objective - Vital Signs/Intake and Output Vital Signs (last 24 hours): Temp Pulse Resp BP Pulse Ox 98.7 F 88 20 152/62 H 100 01/14/18 08:32 01/14/18 08:32 01/14/18 08:32 01/14/18 08:32 01/14/18 08:32 Intake and Output: 01/14/18 01/14/18 06:59 18:59 Intake Total 920 Balance 920 - Medications Medications: Current Medications Albuterol/Ipratropium (Combivent Respimat) 1 puff IH RQ12 [facility] Albuterol/Ipratropium (Duoneb 3 Mg/0.5 Mg (3 Ml) Ud) 3 ml INH RQ6 [facility] Last Admin: 01/14/18 13:47 Dose: 3 ml Apixaban (Eliquis) 2.5 mg PO BID [facility] Last Admin: 01/14/18 09:42 Dose: 2.5 mg Celecoxib (Celebrex) 200 mg PO Q12 PRN PRN Reason: Pain, moderate (4-7) Last Admin: 01/13/18 10:07 Dose: 200 mg Ferrous Sulfate (Feosol) 325 mg PO BID [facility] Last Admin: 01/14/18 09:42 Dose: 325 mg Finasteride (Proscar) 5 mg PO DAILY [facility] Last Admin: 01/14/18 09:42 Dose: 5 mg Fluticasone/Vilanterol (Breo Ellipta 100-25 Mcg Inh) 1 puff INH RQ24 [facility] Last Admin: 01/14/18 13:46 Dose: Not Given Folic Acid (Folic Acid) 1 mg PO DAILY [facility] Last Admin: 01/14/18 09:42 Dose: 1 mg Piperacillin Sod/Tazobactam (Sod 3.375 gm/ Sodium Chloride) 100 mls @ 200 mls/ hr IVPB Q8H [facility]; Protocol Last Admin: 01/14/18 08:41 Dose: 200 mls/hr Insulin Aspart (Novolog) 0 unit SC ACHS [facility]; Protocol Last Admin: 01/14/18 12:12 Dose: Not Given Metolazone (Zaroxolyn) 5 mg PO DAILY [facility] Last Admin: 01/14/18 09:42 Dose: 5 mg Mupirocin (Bactroban Ointment) 0 gm TOP DAILY [facility] Pantoprazole Sodium (Protonix Ec Tab) 40 mg PO DAILY [facility] Last Admin: 01/14/18 09:42 Dose: 40 mg Pioglitazone HCl (Actos) 30 mg PO DAILY [facility] Last Admin: 01/14/18 09:42 Dose: 30 mg Pregabalin (Lyrica) 75 mg PO Q12 PRN PRN Reason: Pain, moderate (4-7) Last Admin: 01/13/18 17:47 Dose: 75 mg Tamsulosin HCl (Flomax) 0.4 mg PO DAILY [facility] Last Admin: 01/14/18 09:42 Dose: 0.4 mg Temazepam (Restoril) 15 mg PO HS PRN PRN Reason: Sleep - Labs Labs: 01/13/18 07:59 01/13/18 07:59 PT 16.9 SECONDS (9.7-12.2) H 01/13/18 07:59 INR 1.5 01/13/18 07:59 APTT 23 SECONDS (21-34) 01/13/18 07:59 Assessment and Plan - Assessment and Plan (Free Text) Assessment: - Constitutional Appears: No Acute Distress - Cardiovascular Exam Cardiovascular Exam: REGULAR RHYTHM, +S1, +S2 - GI/Abdominal Exam GI & Abdominal Exam: Soft, Normal Bowel Sounds. absent: Tenderness - Extremities Exam Extremities Exam: absent: Calf Tenderness, Pedal Edema Additional comments: R. elbow swelling - Neurological Exam Neurological Exam: Alert, Awake, Oriented x3 Assessment and Plan - Assessment and Plan (Free Text) Assessment: 87 y/o presetns with 1. LLE edema after a flight 2. Progression of R. 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 paced with atrial tachycardia: rate controlled 2D echo enhanced with Definity shows mild LV systolic function With elevated filling pressures; encourage Lasix and metalazone to achieve euvolemia Patient should be optimized with Toprol or coreg; ASA 81 and statin therapy CKD III Monitor lytes BP control to SBP <130 Losartan 25 if ok with renal Anemia noted ? related to CKD/chronic disease hx of AFlutter/fib EKG is V. paced likely mode-swithed due to AFIB/flutter ON eliquis 2.5 BID sUGGEST COREG OR TOPROL xl FOR RATE CONTROL Follow up in my office in 2 weeks to reasses heart failure and optimize medication
== END 2018-01-14 16:21 | disposition home or self-care (01) | DRG 602 ==
LOC: C.ER 16:07 → C.9E 18:07 → C.3T 21:06
PROVIDERS: ADMIT Internal Medicine Nephrology; ATTEND Internal Medicine Nephrology
PROC: 0M930ZX Drainage of Right Elbow Bursa and Ligament, Open Approach, Diagnostic (ICD-10-PCS; principal; 2018-01-13)
DX: L03.113 Cellulitis of right upper limb (principal); I50.33 Acute on chronic diastolic (congestive) heart failure; I48.92 Unspecified atrial flutter; I13.0 Hypertensive heart and chronic kidney disease with heart failure and stage 1 through stage 4 chronic kidney disease, or unspecified chronic kidney disease; M70.21 Olecranon bursitis, right elbow; L02.413 Cutaneous abscess of right upper limb; N18.3 Chronic kidney disease, stage 3 (moderate); I48.91 Unspecified atrial fibrillation; E11.22 Type 2 diabetes mellitus with diabetic chronic kidney disease; I25.10 Atherosclerotic heart disease of native coronary artery without angina pectoris; Z95.0 Presence of cardiac pacemaker; Z95.1 Presence of aortocoronary bypass graft; Z79.4 Long term (current) use of insulin

== ENCOUNTER 2018-05-15 15:35 | Outpatient (CLI) | payer MEDICARE | END 2018-05-15 15:36 | disposition home or self-care (01) | LOC: C.CTH 15:36 ==